=== PATIENT | female | born 1950 | race Asian ===

== ENCOUNTER 2017-06-01 18:57 | Emergency (ER) | payer MEDICARE, BC ==
[~2017-06-01 18:57] MED LIST: CANA100T PO; CARB1TAB18 PO; LOSA25TA2 PO; PARO20TA58 PO; PRAM0.5T PO; SOLI5TAB5 PO
[2017-06-01] MEDS ORDERED: KETOROLAC 15 MG INJ IM STA (19:20)
--- NOTE | 2017-06-01 19:55 | RADRPT ---
PROCEDURE: XR Right Shoulder CLINICAL INDICATION: Trauma TECHNIQUE: An AP and a Y-view were submitted. COMPARISON: None FINDINGS: Osseous structures: The osseous elements are quite rarefied but appear intact with no fracture ident ified. Joint spaces: The glenohumeral joint appears unremarkable. Moderate degenerative changes seen about the right AC joint. Soft tissues: The soft tissues are generous. IMPRESSION: 1. No fracture is identified. 2. Moderate degenerative change seen about the right AC joint. Physician Mark Date Time Electronically viewed and signed by Barabra Camarena Physician on 06/01/2017 19:55 /
--- NOTE | 2017-06-01 19:57 | RADRPT ---
PROCEDURE: XR Left Tibia-Fibula CLINICAL INDICATION: Trauma TECHNIQUE: AP and lateral radiographs were submitted COMPARISON: No previous comparison is available. FINDINGS: Osseous structures: The osseous elements appear rarefied but intact. No fractures identified. Joint spaces: are well maintained, with no significant spurring, erosion or joint effusion evident. Soft tissues: Punctate calcifications are seen within the soft tissues anterior to the distal third of the tibia. IMPRESSION: 1. Osteoporosis with no fracture or dislocation identified. 2. A few punctate calcifications are seen within the soft tissues ventral to the distal third of th e left tibia. Physician Mark Date Time Electronically viewed and signed by Physician Mark on 06/01/2017 19:56 /
[2017-06-01] MEDS ORDERED: HYDROCODONE/APAP (5/325) TAB PO ONE (20:00)
[2017-06-01] MEDS ORDERED: RASA1TAB PO (20:29)
[2017-06-01] MEDS ORDERED: CARB1CAP7 PO (20:29)
[2017-06-01] MEDS ORDERED: ENTA200T16 PO (20:29)
[2017-06-01] MEDS ORDERED: GLIM1TAB2 PO (20:29)
[2017-06-01] MEDS ORDERED: OMEP20CA16 PO (20:29)
[2017-06-01] MEDS ORDERED: BISA5TAB6 PO (20:29)
--- NOTE | 2017-06-01 20:57 | ERD ---
ER Documentation Chief Complaint Date/Time DATE: 06/01/17 TIME: 20:55 Chief Complaint HPI 66-year-old female with a history of diabetes, hypertension and Parkinson's disease presents to the ED after a slip and fall out of her chair. Family was visiting in 1 hour to get food and came back and found her on the floor. Patient states she slipped out of the chair and complains of mild pain to her left lower leg and right shoulder. She denies head injury or loss of consciousness. Otherwise asymptomatic. No chest pain, palpitations or shortness of breath. No abdominal pain, nausea or vomiting. No URI symptoms or cough. No fevers or chills. ROS All systems reviewed and are negative except as per history of present illness. Medications Home Meds Reported Medications Bisacodyl* (Bisacodyl*) 5 Mg Tablet.dr, 5 MG PO DAILY, TAB 06/01/17 Carbidopa/Levodopa (Rytary ER 61.25 mg-245 mg Cap) 1 Each Capsule.er, 1 EACH PO , CAP 06/01/17 Rasagiline Mesylate* (Azilect*) 1 Mg Tablet, 1 MG PO DAILY, TAB 06/01/17 Entacapone* (Comtan*) 200 Mg Tab, 200 MG PO 5 TIMES DAILY, TAB TAKE I TABLET 5 TIMES DAILY: 7AM;10AM;1PM;4PM;7PM 06/01/17 Glimepiride* (Glimepiride*) 1 Mg Tablet, 1 MG PO WITH BREAKFAST, TAB 06/01/17 Omeprazole* (Omeprazole*) 20 Mg Capsule.dr, 20 MG PO BID, #60 CAP 06/01/17 Paroxetine Hcl* (Paxil*) 20 Mg Tablet, 20 MG PO HS, TAB 06/15/15 Pramipexole* (Pramipexole*) 0.5 Mg Tablet, 0.5 MG PO TID, TAB 06/15/15 Carbidopa-Levodopa* (Sinemet*) 10-100 Mg Tablet, 1 TAB PO 5 TIMES DAILY, TAB TAKE 1 TABLET 5 TIMES DAILY: 7AM;10AM;1PM;4PM;7PM 06/15/15 Discontinued Reported Medications Losartan Potassium* (Cozaar*) 25 Mg Tablet, 25 MG PO DAILY, TAB 06/15/15 Solifenacin* (Vesicare*) 5 Mg Tablet, 5 MG PO DAILY, TAB 06/15/15 Canagliflozin (Invokana) 100 Mg Tablet, 100 MG PO DAILY, TAB 06/15/15 Allergies Allergies: Coded Allergies: No Known Allergy (Unverified , 06/01/17) PMhx/Soc Reviewed in chart. As per HPI History of Surgery: No Anesthesia Reaction: No Hx Neurological Disorder: Yes (Hx Parkinsons) Hx Respiratory Disorders: No Hx Cardiac Disorders: Yes (HTN) Hx Psychiatric Problems: No Hx Miscellaneous Medical Probl: Yes (HTN, DM, Parkinson's Disease) Hx Alcohol Use: No Hx Substance Use: No Hx Tobacco Use: No Smoking Status: Never smoker FmHx Reviewed in chart. Not relevant to presenting complaint. Physical Exam Vitals Vital Signs Date Time Temp Pulse Resp B/P Pulse Ox O2 Delivery O2 Flow Rate FiO2 06/01/17 22:15 81 26 108/69 93 Room Air 06/01/17 20:51 79 31 123/65 95 Room Air 06/01/17 19:23 84 26 126/73 95 Room Air Physical Exam Const: Alert, no acute distress. Head: Atraumatic Eyes: Normal Conjunctiva. Pupils equal reactive to light ENT: Normal External Ears, Nose and Mouth. Neck: Full range of motion. Nontender. Resp: Breath sounds equal and clear to auscultation bilaterally Cardio: Regular rate and rhythm, no murmurs Abd: Soft, nontender non tender, non distended. Normal bowel sounds Skin: No petechiae or rashes Back: No midline or flank tenderness Ext: Left lower extremity: Pretibial tenderness just below the knee with superficial bruising. No swelling, ecchymosis or deformity. No knee, hip or ankle swelling or tenderness. Full range of motion. Distal neurovascular intact. Right shoulder: Mild tenderness but no deformity. Range of motion is diminished due to pain. No elbow or wrist swelling or tenderness. Distal neurovascular intact. Neur: Awake and alert. Severe tremors and dysarthria. Psych: Normal Mood and Affect Results 24 hrs Current Medications Medications (Trade) Dose Ordered Sig/Shawn Route PRN Reason Start Time Stop Time Status Last Admin Dose Admin Ketorolac Tromethamine (Toradol) 15 mg ONCE STAT IM 06/01/17 19:20 06/01/17 19:21 DC Acetaminophen/ Hydrocodone Bitart (Center (5325)) 1 tab ONCE ONCE PO 06/01/17 20:00 06/01/17 20:01 DC 06/01/17 19:49 Procedures/MDM DOCUMENTS REVIEWED: ED nurse, prior ED, prior records MEDICAL DECISION MAKIN-year-old female with a history of diabetes, hypertension and Parkinson's disease presents to the ED after a slip and fall out of her chair. Patient refused any workup other than radiographs which were negative. No head injury, headache, loss of consciousness or other indication for neuroimaging. There was no syncope. Stable for discharge with precautionary instructions and outpatient follow-up as counseled Counseled patient of regarding diagnostic workup, diagnosis and need for followup. Understands to return to ED if symptoms recur, worsen or any other concerns. Departure Diagnosis: Primary Impression: Fall Encounter type: initial encounter Qualified Code: W19.XXXA - Fall, initial encounter Additional Impressions: Contusion of left lower extremity Encounter type: initial encounter Qualified Code: S80.12XA - Contusion of left lower extremity, initial encounter Parkinsons disease Contusion of right shoulder Encounter type: initial encounter Qualified Code: S40.011A - Contusion of right shoulder, initial encounter Condition: Stable (Improved) ALVARO SAVAGE MD Jun 01, 2017 20:57
[2017-06-01 22:15] VITALS: BP 108/69; PULSE 81; RESP 26
== END 2017-06-01 22:19 | disposition home or self-care (01) ==
LOC: E/R 18:57
DX: S80.12XA Contusion of left lower leg, initial encounter (principal); S40.011A Contusion of right shoulder, initial encounter; G20 Parkinson's disease; E11.9 Type 2 diabetes mellitus without complications; I10 Essential (primary) hypertension; W07.XXXA Fall from chair, initial encounter; Y92.9 Unspecified place or not applicable; Z79.84 Long term (current) use of oral hypoglycemic drugs
CPT/HCPCS: 73030; 73590; 99284; J1885

== ENCOUNTER 2017-07-08 03:19 | Inpatient (IN) | payer MEDICARE, BC ==
[2017-07-08] VITALS (7 sets, daily range): BP systolic 129–148; BP diastolic 62–80; PULSE 86–91; RESP 18–32; TEMP 98.9; Ht 165.1 cm; Wt 86.4 kg
[~2017-07-08] VITALS: Ht 165.1 cm; Wt 86.4 kg
[~2017-07-08 03:19] MED LIST changes: +BISA5TAB6 PO; -CANA100T PO; +CARB1CAP7 PO; +ENTA200T16 PO; +GLIM1TAB2 PO; -LOSA25TA2 PO; +OMEP20CA16 PO; +RASA1TAB PO; -SOLI5TAB5 PO
[2017-07-08] MEDS ORDERED: VANCOMYCIN 1 GM (PMX) 250 ML IVPB ONE (03:30)
[2017-07-08] MEDS ORDERED: CEFEPIME 2GM/50 ML (PMX) 50 ML IVPB STA (03:30)
[2017-07-08] MEDS ORDERED: SOD CHLORIDE 0.9% 1,000 ML IV ONE ×2 (03:30)
[2017-07-08] MEDS ORDERED: SOD CHLORIDE 0.9% 500 ML IV ONE ×2 (03:30→04:00)
--- NOTE | 2017-07-08 03:58 | ERA ---
ER Documentation Chief Complaint Date/Time DATE: 07/08/17 TIME: 03:53 Chief Complaint BIB RA from home with c/o ALOC, high fever. HPI This 67-year-old female is brought in from home for high fever and altered mental status. She was at home with her who called paramedics for fever is going up on for 2 days. Patient's been out of several hospitals and is bedridden in a hospital bed at home. denies patient has had cough recently. She is unable to provide a history for herself. ROS Unobtainable from patient Medications Home Meds Reported Medications Bisacodyl* (Bisacodyl*) 5 Mg Tablet.dr, 5 MG PO DAILY, TAB 06/01/17 Carbidopa/Levodopa (Rytary ER 61.25 mg-245 mg Cap) 1 Each Capsule.er, 1 EACH PO , CAP 06/01/17 Rasagiline Mesylate* (Azilect*) 1 Mg Tablet, 1 MG PO DAILY, TAB 06/01/17 Entacapone* (Comtan*) 200 Mg Tab, 200 MG PO 5 TIMES DAILY, TAB TAKE I TABLET 5 TIMES DAILY: 7AM;10AM;1PM;4PM;7PM 06/01/17 Glimepiride* (Glimepiride*) 1 Mg Tablet, 1 MG PO WITH BREAKFAST, TAB 06/01/17 Omeprazole* (Omeprazole*) 20 Mg Capsule.dr, 20 MG PO BID, #60 CAP 06/01/17 Paroxetine Hcl* (Paxil*) 20 Mg Tablet, 20 MG PO HS, TAB 06/15/15 Pramipexole* (Pramipexole*) 0.5 Mg Tablet, 0.5 MG PO TID, TAB 06/15/15 Carbidopa-Levodopa* (Sinemet*) 10-100 Mg Tablet, 1 TAB PO 5 TIMES DAILY, TAB TAKE 1 TABLET 5 TIMES DAILY: 7AM;10AM;1PM;4PM;7PM 06/15/15 Allergies Allergies: Coded Allergies: No Known Allergy (Unverified , 07/08/17) PMhx/Soc History of Surgery: No Anesthesia Reaction: No Hx Neurological Disorder: Yes (Parkinsons Disease, ) Hx Respiratory Disorders: No Hx Cardiac Disorders: Yes (HTN) Hx Psychiatric Problems: No Hx Miscellaneous Medical Probl: Yes (DM) Hx Alcohol Use: No Hx Substance Use: No Hx Tobacco Use: No Physical Exam Vitals Vital Signs Date Time Temp Pulse Resp B/P Pulse Ox O2 Delivery O2 Flow Rate FiO2 07/08/17 03:52 102.9 96 18 136/75 96 Room Air 07/08/17 03:31 102.9 106 22 136/75 100 Physical Exam Const: [] Moderate distress Head: Atraumatic Eyes: Normal Conjunctiva ENT: Normal External Ears, Nose and Mouth. Neck: Supple, no JVD Resp: Tachypnea with mild decreased bibasilar breath sounds Cardio: Regular tachycardia, no murmurs Abd: Soft, no apparent tenderness, non distended. Normal bowel sounds Skin: No petechiae or rashes, very warm to the touch Back: No midline or flank tenderness Ext: No cyanosis, mild pedal edema Neur: Awake and alert, opens eyes to voice, has some purposeful movements, does not follow commands well. Moves all 4 extremities apparently Psych: Normal Mood and Affect Result Diagram: 07/08/17 0330 07/08/17 0330 Results 24 hrs Laboratory Tests Test 07/08/17 03:30 White Blood Count 9.510^3/ul Red Blood Count 4.2010^6/ul Hemoglobin 13.3g/dl Hematocrit 39.7% Mean Corpuscular Volume 94.5fl Mean Corpuscular Hemoglobin 31.7pg Mean Corpuscular Hemoglobin Concent 33.5g/dl Red Cell Distribution Width 12.9% Platelet Count 96688^3/UL Mean Platelet Volume 9.3fl Neutrophils % 85.2% Lymphocytes % 10.5% Monocytes % 3.5% Eosinophils % 0.0% Basophils % 0.2% Nucleated Red Blood Cells % 0.0/100WBC Neutrophils # 8.110^3/ul Lymphocytes # 1.010^3/ul Monocytes # 0.310^3/ul Eosinophils # 0.010^3/ul Basophils # 0.010^3/ul Nucleated Red Blood Cells # 0.010^3/ul Prothrombin Time 15.2Sec Prothrombin Time Ratio 1.2 INR International Normalized Ratio 1.19 Activated Partial Thromboplast Time 29.0Sec Urine Color YELLOW Urine Clarity SLIGHTLY CLOUDY Urine pH 6.0 Urine Specific [place] 1.037 Urine Ketones 2+mg/dL Urine Nitrite NEGATIVEmg/dL Urine Bilirubin NEGATIVEmg/dL Urine Urobilinogen NEGATIVEmg/dL Urine Leukocyte Esterase 1+Henrique/ul Urine Microscopic RBC 27/HPF Urine Microscopic WBC 38/HPF Urine Hemoglobin 2+mg/dL Urine Glucose 3+mg/dL Urine Total Protein 2+mg/dl Sodium Level 141mmol/L Potassium Level 3.7mmol/L Chloride Level 101mmol/L Carbon Dioxide Level 23mmol/L Anion Gap 21 Blood Urea Nitrogen 13mg/dl Creatinine 0.67mg/dl Glucose Level 151mg/dl Lactic Acid Level 1.1mmol/L Calcium Level 8.7mg/dl Total Bilirubin 0.8mg/dl Direct Bilirubin 0.00mg/dl Indirect Bilirubin 0.8mg/dl Aspartate Amino Transf (AST/SGOT) 27IU/L Alanine Aminotransferase (ALT/SGPT) 17IU/L Alkaline Phosphatase 48IU/L Troponin I 0.014ng/ml Total Protein 7.0g/dl Albumin 4.3g/dl Globulin 2.70g/dl Albumin/Globulin Ratio 1.59 Current Medications Medications (Trade) Dose Ordered Sig/Shawn Route PRN Reason Start Time Stop Time Status Last Admin Dose Admin Cefepime HCl 50 ml @ 100 mls/hr ONCE STAT IVPB 07/08/17 03:30 07/08/17 03:59 DC 07/08/17 04:17 Vancomycin HCl 250 ml @ 125 mls/hr ONCE ONCE IVPB 07/08/17 03:30 07/08/17 05:29 07/08/17 04:46 Sodium Chloride 1,000 ml @ 1,000 mls/hr Q1H ONCE IV 07/08/17 03:30 07/08/17 04:29 DC 07/08/17 04:17 Sodium Chloride 1,000 ml @ 1,000 mls/hr Q1H ONCE IV 07/08/17 03:30 07/08/17 04:29 DC 07/08/17 04:17 Sodium Chloride 500 ml @ 500 mls/hr Q1H ONCE IV 07/08/17 03:30 07/08/17 04:29 DC 07/08/17 04:16 Sodium Chloride (NS) 500 ml @ 500 mls/hr Q1H ONCE IV 07/08/17 04:00 07/08/17 04:59 DC 07/08/17 04:24 Acetaminophen (Tylenol Supp) 650 mg ONCE ONCE WA 07/08/17 05:30 07/08/17 05:31 Procedures/MDM UTI with sepsis and debilitated patient. Septic workup was immediately performed. Patient was hydrated 2-1/2 L of normal saline, given cefepime and vancomycin. Initially unstable vital signs stabilized with treatment. did not want CTs performed the patient and she has had several and had a CT abdomen pelvis 2 months ago the x-ray did not want that done. Patient initially appear to be in respiratory distress stabilized with just fluids and antibiotics. Spoke with Dr. Felix will be admitting the patient to telemetry for further monitoring. mold engraver interpretation: Sinus tachycardia followed by normal sinus rhythm without arrhythmia EKG interpretation: Sinus tachycardia rate of 106, normal intervals, no ST or T- wave changes concerning for acute ischemia, left axis deviation Chest x-ray interpretation: I see no acute process, no pneumonia, no pulmonary edema, no widened mediastinum, no pneumothorax, no fractures Critical care time 35 minutes: This includes treatment of sepsis and debilitated patient with unstable vital signs, careful fluid administration, early antibiotic administration, consideration of invasive procedures, chart review, discussion with patient's and admitting doctor. This does not include any billable procedure Departure Diagnosis: Primary Impression: Sepsis secondary to UTI Additional Impression: Metabolic encephalopathy Condition: Serious CRISTÓBAL LLANES DO Jul 08, 2017 03:58
[2017-07-08 04:12] LABS: UR BILIRUBIN (Dip) NEGATIVE (NEGATIVE); UR BLOOD (Dip) 2+ mg/dL (NEGATIVE); UR CLARITY SLIGHTLY CLOUDY (CLEAR); UR COLOR YELLOW (YELLOW); UR GLUCOSE (Dip) 3+ mg/dL (NEGATIVE); UR KETONES (Dip) 2+ mg/dL (NEGATIVE); UR LEUKOCYTE ESTERASE (Dip) 1+ Leu/ul (NEGATIVE); UR NITRITE (Dip) NEGATIVE (NEGATIVE); UR SPECIFIC GRAVITY (Dip) 1.037 (1.003-1.030); UR TOTAL PROTEIN (Dip) 2+ mg/dl (NEGATIVE); UR UROBILINOGEN (Dip) NEGATIVE (NEGATIVE)
[2017-07-08 04:13] LABS: ADD UMIC YES; UR ASCORBIC ACID 40 mg/dL (NEGATIVE); UR RBC 27 /HPF (0-5)
[2017-07-08 04:14] LABS: BASOPHILS % 0.2 % (0.0-2.0); HEMATOCRIT 39.7 % (37.0-47.0); HEMOGLOBIN 13.3 g/dl (12.0-16.0); LYMPHOCYTES % 10.5 % (15.0-51.0); MEAN CORPUSCULAR HEMOGLOBIN 31.7 pg (29.0-33.0); MEAN CORPUSCULAR HGB CONC 33.5 g/dl (32.0-37.0); MEAN CORPUSCULAR VOLUME 94.5 fl (82.0-101.0); MEAN PLATELET VOLUME 9.3 fl (7.4-10.4); MONOCYTE # 0.3 10^3/ul (0.3-0.9); MONOCYTES % 3.5 % (0.0-11.0); NEUTROPHIL # 8.1 10^3/ul (1.6-7.5); NEUTROPHILS % 85.2 % (39.0-77.0); PLATELET COUNT 184 10^3/UL (140-415); RED CELL DISTRIBUTION WIDTH 12.9 % (11.5-14.5); WHITE BLOOD COUNT 9.5 10^3/ul (4.8-10.8)
[2017-07-08 04:15] LABS: INR 1.19; PROTIME 15.2 Sec (12.2-14.2); PT RATIO 1.2
[2017-07-08 04:28] LABS: ALBUMIN 4.3 g/dl (3.3-4.9); ALBUMIN/GLOBULIN RATIO 1.59; BILIRUBIN,INDIRECT 0.8 mg/dl (0-1.1); BILIRUBIN,TOTAL 0.8 mg/dl (0.2-1.3); CALCIUM 8.7 mg/dl (8.4-10.2); CREATININE 0.67 mg/dl (0.44-1.00); POTASSIUM 3.7 mmol/L (3.5-5.1)
--- NOTE | 2017-07-08 04:38 | RADRPT ---
PROCEDURE: Chest. CLINICAL INDICATION: Chest pain. TECHNIQUE: Single frontal view of the chest was obtained. COMPARISON: 06/15/2015. FINDINGS: The cardiac silhouette is magnified. The aortic arch is calcified. There is no focal consolidation , vascular congestion or pleural effusion. There is no pneumothorax. IMPRESSION: No evidence for active cardiopulmonary disease. Aortic atherosclerosis. .Gian Ruiz MD, MD Date Time Electronically viewed and signed by .Gian Ruiz MD, MD on 07/08/2017 04:38 .T/
[2017-07-08 04:39] LABS: TROPONIN-I 0.014 ng/ml (0.00-0.12)
[2017-07-08] MEDS ORDERED: ACETAMINOPHEN 650 MG SUPP PR ONE (05:30)
[2017-07-08] MEDS ORDERED: ONDANSETRON 4 MG INJ IV PRN ×2 (05:30→06:00)
[2017-07-08] MEDS ORDERED: ACETAMINOPHEN 325 MG TAB PO PRN (05:30)
[2017-07-08] MEDS ORDERED: LEVOFLOXACIN 750MG/D5W (PMX) 150 ML IVPB SCH (06:00)
[2017-07-08] MEDS ORDERED: NACL 0.9% 3 ML SYG IV SCH (06:00)
[2017-07-08] MEDS ORDERED: morphine 2 MG INJ IV PRN (06:00)
[2017-07-08] MEDS: SOD CHLORIDE 0.9% 1,000 ML IV SCH ×2 (07:03→18:26)
--- NOTE | 2017-07-08 07:21 | HP ---
Date/Time of Note Date/Time of Note DATE: 07/08/17 TIME: 06:59 Assessment/Plan VTE Prophylaxis VTE Prophylaxis Intervention: SCD's Assessment/Plan Chief Complaint/Hosp Course This is a 67-year-old female being admitted to the telemetry floor for: #1 urosepsis: Patient presented with fever tachypnea and tachycardia. UA was positive for urinary tract infection. Patient initially received IV antibiotics in the ED. At the current time will put the patient on Levaquin 750 mg q. daily. Will await urine cultures. Tylenol for fevers. Her CBC and CMP are within normal values. And her lactate is 0.8. #2 Parkinson's: Patient at the current time is having issues with her speech as well as rigidity/dystonic features. This likely could be secondary to worsening of her Parkinson's versus adverse effects from her medications as she was on high-dose of parkinsons medications. At the current time we will continue her carbidopa levodopa and pramipexole and Azilect. The did state that her entacapone home dose was reduced however based on the medical reconciliation it stated 200 mg 5 times a day. At the current time we will not restart this medication will consult with neurology for further medication guidance. We will also consult neurology overall patient's clinical condition. #3 tachypnea: Patient has periods of tachypnea. She denies any shortness of breath or chest pain. Her x-ray does not show any signs of any infection. This could be possibly a symptom over Parkinson's., However we will continue to monitor this. Her lactate level was 0.8. #4 diabetes mellitus: Patient is only on glimepiride as an outpatient. Will check hemoglobin A1c. Will put patient on insulin sliding scale. Further treatment strategy will be implemented for the clinical course Problems: HPI/ROS Admit Date/Time Admit Date/Time Hx of Present Illness Chief complaint: Altered mental status and high fever This 67-year-old female is brought in from home for high fever and altered mental status. She was at home with her who called paramedics for fever is going up on for 2 days. Patient's been out of several hospitals and is bedridden in a hospital bed at home. denies patient has had cough recently. She is unable to provide a history for herself. Upon my examination the patient was awake in bed. She had periods of tachypnea. Denies any chest pain or shortness of breath. As per the she has been dealing with Parkinson's for the last few years. 2 weeks ago she did have her Parkinson's medications adjusted since that time the has noticed that her her fingers have become somewhat contracted. She also was having issues with drooling and she will she saw a neurologist and had an injection to her face. This since that time she has been unable to properly enunciate her words. She was seen by a new neurologist 1-2 days ago who thought some of her symptoms may be related to too high of a dose of her Parkinson's medications. Her medication doses were decreased. Also states that she has not been able to have proper bowel movements over the last 1-2 weeks. Allergies: NKDA Medications: See ELENA CARRERA Subjective hx not possible: other (Patient not properly able to verbalize secondary likely to underlying Parkinson's medication effect.) PMH/Family/Social Past Medical History Parkinson's, diabetes Past Surgical History Back surgery Family History Significant Family History: no pertinent family hx Social History Alcohol Use: none Smoking Status: Never smoker Drug Use: none Exam/Review of Systems Vital Signs Vitals Vital Signs Date Time Temp Pulse Resp B/P Pulse Ox O2 Delivery O2 Flow Rate FiO2 07/08/17 06:00 100.6 81 18 124/64 98 Room Air Exam Exam General: This is a 67-year-old female lying in bed, going in and out of increased work of breathing, denies any chest pain or shortness of breath HEENT: Atraumatic, normocephalic. The pupils are equal, round and reactive. Extraocular motor are intact Neck: Supple with full range of motion. No rigidity or meningismus Chest: Nontender Lungs: Patient goes from normal breathing but does display periods of tachypnea. Lungs are clear to auscultation. Heart: Normal S1-S2, Regular rhythm and rate. No overt murmurs appreciated Abdomen: Soft , nontender, nondistended , bowel sounds are present. No guarding no rebound tenderness , Extremities: Strength 4 out of 5 in the upper extremities bilaterally, contractures noted in the hands and fingers. Strength 3-4 out of 5 in the bilateral lower extremities, free range of motion of 4 extremities. Neurologic: Patient is not properly able to enunciate her speech, it is not clear. Cranial nerves II through XII intact. Additional Comments PROCEDURE: Chest. CLINICAL INDICATION: Chest pain. TECHNIQUE: Single frontal view of the chest was obtained. COMPARISON: 06/15/2015. FINDINGS: The cardiac silhouette is magnified. The aortic arch is calcified. There is no focal consolidation, vascular congestion or pleural effusion. There is no pneumothorax. IMPRESSION: No evidence for active cardiopulmonary disease. Aortic atherosclerosis. .Gian Ruiz MD, MD Date Time Electronically viewed and signed by .Gian Ruiz MD, MD on 07/08/2017 04:38 .T/ CC: CRISTÓBAL LLANES DO Labs Result Diagram: 07/08/17 0330 07/08/17 0330 Medications Medications Current Medications Sodium Chloride (NS) 1,000 ml @ 80 mls/hr [id number] IV ; Start 07/08/17 at 05:56 Ondansetron HCl (Zofran Inj) 4 mg Q6H PRN IV NAUSEA AND/OR VOMITING; Start 09/14 at 06:00 Acetaminophen (Tylenol Tab) 650 mg Q6H PRN PO PAIN LEVEL 1-3 OR FEVER; Start at 06:00 Morphine Sulfate (morphine) 2 mg Q4H PRN IV PAIN LEVEL 7-10; Start 07/08/17 at 06:00 Famotidine 20 mg 20 mg Q12 PO ; Start 07/08/17 at 09:00 Levofloxacin/ Dextrose (Levaquin 750 Mg/ D5W 150 ml (Pmx)) 150 ml @ 100 mls/hr Q24H IVPB ; Start 07/08/17 at 06:00 OSMAN INIGUEZ Jul 08, 2017 07:09
--- NOTE | 2017-07-08 08:58 | RADRPT ---
PROCEDURE: XR Abdomen 1 View. CLINICAL INDICATION: Abdominal pain, constipation. TECHNIQUE: AP abdomen x-ray. COMPARISON: None. FINDINGS: Air and stool are seen scattered throughout the colon multiple nondilated, gas filled loops of smal l bowel are seen in the abdomen. No dilated loops of small bowel are observed. No organomegaly is identified. Likely Luna catheter is seen over the lower pelvis. Degenerative changes are noted in the hips and spine. IMPRESSION: Nonspecific bowel gas pattern. If further characterization of the abdomen is needed CT should be considered. RPTAT: AA .Victor Hugo Baez MD, Date Time Electronically viewed and signed by .Victor Hugo Beaz MD, on 07/08/2017 08:58 .P/
[2017-07-08] MEDS: RASAGILINE MESYLATE 1 MG TAB PO SCH (09:00)
[2017-07-08] MEDS: FAMOTIDINE 20 MG TAB PO SCH ×2 (09:00→22:05)
[2017-07-08] MEDS: PRAMIPEXOLE 0.25 MG TAB PO SCH ×3 (09:00→22:05)
[2017-07-08] MEDS: CARBIDOPA/LEVODOPA (10/100) TAB PO SCH ×5 (09:00→21:00)
--- NOTE | 2017-07-08 10:52 | RADRPT ---
PROCEDURE: CT Abdomen and Pelvis without contrast. CLINICAL INDICATION: Sepsis, fever, UTI TECHNIQUE: CT of the abdomen and pelvis was performed on a multi-detector scanner without IV contr ast. Coronal and sagittal images were reformatted from the axial data set. One or more of the foll owing dose reduction techniques were used: automated exposure control, adjustment of the mA and/or k V according to patient size, use of iterative reconstruction technique. CTDI = 22.3 mGy. DLP = 1442 .3 mGy-cm. COMPARISON: None. FINDINGS: CT abdomen: The lung bases are clear. The heart size is normal, without pericardial effusion. Coronary arteria l calcifications are noted. The liver is fatty infiltrated, without evidence of focal mass. Gallbl adder, biliary tree, pancreas, spleen, adrenal glands and kidneys are unremarkable. No urolithiasis or obstructive uropathy is identified. The stomach is grossly unremarkable. The aorta is of normal caliber. Aortic vascular calcifications are present. There is no retroperit nunez lymphadenopathy. The neetu hepatis region is clear. CT pelvis: No bowel obstruction, free intraperitoneal air or abscess is identified. Mild retained fecal materi al may indicate constipation. There is no diverticulosis, diverticulitis, colitis or appendicitis. Fat-containing periumbilical ventral hernia is noted. Luna catheter balloon is within the urinary bladder. Uterus and adnexa are grossly unremarkable. No pelvic mass, free fluid or lymphadenopath y is identified. The surrounding osseous structures are remarkable for degenerative enthesopathy of the spine. No os teolytic or osteoblastic lesion is detected. IMPRESSION: 1. Coronary arterial and aortoiliac atherosclerotic calcifications. 2. Hepatic steatosis. 3. Mild retained fecal material, possibly indicating constipation. 4. Small fat-containing periumbilical ventral hernia, without incarceration. 5. Luna catheter balloon is within the urinary bladder. 6. No mass, lymphadenopathy, or focal acute inflammatory process is identified. RPTAT: EE .Isac Henson MD, Date Time Electronically viewed and signed by .Isac Henson MD, MD on 07/08/2017 10:51 .R/
[2017-07-08] MEDS ORDERED: POLYETHYLENE GLYCOL 17 GM PACKET PO PRN (17:00)
--- NOTE | 2017-07-08 18:12 | PN ---
Date/Time of Note Date/Time of Note DATE: 07/08/17 TIME: 17:54 Assessment/Plan VTE Prophylaxis VTE Prophylaxis Intervention: SCD's Lines/Catheters IV Catheter Type (from Nrsg): Saline Lock Urinary Cath still in place: Yes Reason Cath still needed: other (indicate) (dc) Assessment/Plan Assessment/Plan 67 yo F with Parkinsons presents with constipation, abd pain, fever. Likely 2/2 UTI +/- ADR to her new PD regimen. PLAN -cont empiric abx -start miralax -phone cs with neurologist, he advised outpatient f/u DVT prophx cont SSRI Subjective 24 Hr Interval Summary Free Text/Dictation Pt failed ED BSE, but passed ST eval. States last BM was several days ago. Exam/Review of Systems Vital Signs Vitals Vital Signs Date Time Temp Pulse Resp B/P Pulse Ox O2 Delivery O2 Flow Rate FiO2 07/08/17 16:00 88 07/08/17 14:27 98.4 18 129/62 98 Room Air Exam sitting up in bed, nad no mrg lungs clear abd mildly distended no le edema no rashes abd XR with constipation Results Result Diagram: 07/08/17 0330 07/08/17 0330 Results 24 hrs Laboratory Tests Test 07/08/17 03:30 07/08/17 05:28 07/08/17 08:07 07/08/17 08:27 White Blood Count 9.5 Red Blood Count 4.20 Hemoglobin 13.3 Hematocrit 39.7 Mean Corpuscular Volume 94.5 Mean Corpuscular Hemoglobin 31.7 Mean Corpuscular Hemoglobin Concent 33.5 Red Cell Distribution Width 12.9 Platelet Count 184 Mean Platelet Volume 9.3 # Neutrophils % 85.2 H Lymphocytes % 10.5 L Monocytes % 3.5 Eosinophils % 0.0 Basophils % 0.2 Nucleated Red Blood Cells % 0.0 Neutrophils # 8.1 H Lymphocytes # 1.0 Monocytes # 0.3 Eosinophils # 0.0 Basophils # 0.0 Nucleated Red Blood Cells # 0.0 Prothrombin Time 15.2 H Prothrombin Time Ratio 1.2 INR International Normalized Ratio 1.19 Activated Partial Thromboplast Time 29.0 Urine Color YELLOW Urine Clarity SLIGHTLY CLOUDY A Urine pH 6.0 Urine Specific [place] 1.037 H Urine Ketones 2+ H Urine Nitrite NEGATIVE Urine Bilirubin NEGATIVE Urine Urobilinogen NEGATIVE Urine Leukocyte Esterase 1+ H Urine Microscopic RBC 27 H Urine Microscopic WBC 38 H Urine Hemoglobin 2+ H Urine Glucose 3+ H Urine Total Protein 2+ H Sodium Level 141 Potassium Level 3.7 Chloride Level 101 Carbon Dioxide Level 23 Anion Gap 21 H Blood Urea Nitrogen 13 Creatinine 0.67 Glucose Level 151 Lactic Acid Level 1.1 0.8 0.8 Calcium Level 8.7 Total Bilirubin 0.8 Direct Bilirubin 0.00 Indirect Bilirubin 0.8 Aspartate Amino Transf (AST/SGOT) 27 Alanine Aminotransferase (ALT/SGPT) 17 Alkaline Phosphatase 48 Troponin I 0.014 Total Protein 7.0 Albumin 4.3 Globulin 2.70 Albumin/Globulin Ratio 1.59 Bedside Glucose 133 Medications Medications Current Medications Sodium Chloride (NS) 1,000 ml @ 80 mls/hr [id number] IV Last administered on 07/08 07:03; Admin Dose 80 MLS/HR; Start 07/08/17 at 05:56 Ondansetron HCl (Zofran Inj) 4 mg Q6H PRN IV NAUSEA AND/OR VOMITING; Start 09/14 at 06:00 Acetaminophen (Tylenol Tab) 650 mg Q6H PRN PO PAIN LEVEL 1-3 OR FEVER; Start at 06:00 Morphine Sulfate (morphine) 2 mg Q4H PRN IV PAIN LEVEL 7-10; Start 07/08/17 at 06:00 Famotidine 20 mg 20 mg Q12 PO ; Start 07/08/17 at 09:00 Levofloxacin/ Dextrose (Levaquin 750 Mg/ D5W 150 ml (Pmx)) 150 ml @ 100 mls/hr Q24H IVPB Last administered on 07/08/17 07:12; Admin Dose 100 MLS/HR; Start at 06:00 Paroxetine HCl (Paxil) 20 mg HS PO ; Start 07/08/17 at 21:00 Pramipexole (Mirapex) 0.5 mg TID PO ; Start 07/08/17 at 09:00 Rasagiline (Azilect) 1 mg DAILY PO ; Start 07/08/17 at 09:00 Polyethylene Glycol (Miralax) 17 gm DAILY PRN PO CONSTIPATION; Start 07/08/17 at 17:00 SJ MCDOWELL MD Jul 08, 2017 18:04
[2017-07-08] MEDS: PAROXETINE 20 MG TAB PO SCH (22:05)
[2017-07-08] MEDS ORDERED: VANCOMYCIN IV PER PHARMACY XX SCH (23:30)
[2017-07-09] VITALS (13 sets, daily range): BP systolic 127–158; BP diastolic 68–82; PULSE 78–95; RESP 16–20
[2017-07-09] MEDS ORDERED: VANCOMYCIN 1.25 GM in SOD CHLORIDE 0.9% 250 ML IVPB SCH (01:00)
[2017-07-09] MEDS: ACETAMINOPHEN 325 MG TAB PO PRN ×2 (01:54→17:23)
[2017-07-09] MEDS ORDERED: GLUCOSE GEL 15 GRAM TUBE BUCCAL PRN (05:00)
[2017-07-09] MEDS ORDERED: DEXTROSE 50% 50 ML SYRINGE IV PRN ×2 (05:00)
[2017-07-09] MEDS ORDERED: GLUCAGON 1 MG INJ IM PRN (05:00)
[2017-07-09] MEDS ORDERED: GLUCOSE GEL 15 GRAM TUBE PO PRN ×2 (05:00)
[2017-07-09] MEDS: LEVOFLOXACIN 750 MG TABLET PO SCH (05:45)
[2017-07-09] MEDS: SOD CHLORIDE 0.9% 1,000 ML IV SCH ×2 (05:46→17:21)
[2017-07-09 07:43] LABS: BASOPHILS % 0.3 % (0.0-2.0); HEMATOCRIT 37.9 % (37.0-47.0); HEMOGLOBIN 13.2 g/dl (12.0-16.0); LYMPHOCYTES # 1.2 10^3/ul (0.8-2.9); LYMPHOCYTES % 12.7 % (15.0-51.0); MEAN CORPUSCULAR HGB CONC 34.8 g/dl (32.0-37.0); MEAN CORPUSCULAR VOLUME 94.8 fl (82.0-101.0); MEAN PLATELET VOLUME 9.2 fl (7.4-10.4); MONOCYTE # 0.5 10^3/ul (0.3-0.9); MONOCYTES % 4.8 % (0.0-11.0); NEUTROPHIL # 7.9 10^3/ul (1.6-7.5); NEUTROPHILS % 81.7 % (39.0-77.0); PLATELET COUNT 160 10^3/UL (140-415); RED CELL DISTRIBUTION WIDTH 12.6 % (11.5-14.5); WHITE BLOOD COUNT 9.7 10^3/ul (4.8-10.8)
[2017-07-09] MEDS ORDERED: INSULIN ASPART [NOVOLOG] 3 ML PEN SC SCH (08:00)
[2017-07-09] MEDS: RASAGILINE MESYLATE 1 MG TAB PO SCH (08:09)
[2017-07-09] MEDS: PRAMIPEXOLE 0.25 MG TAB PO SCH ×3 (08:10→21:30)
[2017-07-09] MEDS: FAMOTIDINE 20 MG TAB PO SCH ×2 (08:10→21:30)
[2017-07-09 08:13] LABS: ALBUMIN 3.5 g/dl (3.3-4.9); ALBUMIN/GLOBULIN RATIO 1.4; BILIRUBIN,INDIRECT 0.7 mg/dl (0-1.1); BILIRUBIN,TOTAL 0.7 mg/dl (0.2-1.3); CALCIUM 8.2 mg/dl (8.4-10.2); CHOL/HDL RATIO 5.2 RATIO; CREATININE 0.5 mg/dl (0.44-1.00); MAGNESIUM 2.2 mg/dl (1.7-2.5); POTASSIUM 3.4 mmol/L (3.5-5.1)
[2017-07-09] MEDS: CARBIDOPA/LEVODOPA (10/100) TAB PO SCH ×5 (08:15→21:30)
[2017-07-09 08:43] LABS: THYROID STIMULATING HORMONE 1.79 MIU/L (0.465-4.680)
[2017-07-09] MEDS ORDERED: NA PHOSPHATE/BIPHOS 133 ML ENEMA PR PRN (11:00)
[2017-07-09] MEDS: ACCU-CHEK XX SCH ×2 (11:37→17:27)
[2017-07-09] MEDS: VANCOMYCIN 1 GM in NS 250 ML IVPB SCH (13:18)
[2017-07-09] MEDS ORDERED: POTASSIUM CHLORIDE (SR) 20 MEQ TAB PO STA (16:19)
--- NOTE | 2017-07-09 16:19 | PN ---
Date/Time of Note Date/Time of Note DATE: 07/09/17 TIME: 16:18 Assessment/Plan VTE Prophylaxis VTE Prophylaxis Intervention: SCD's Lines/Catheters IV Catheter Type (from Nrsg): Peripheral IV Urinary Cath still in place: Yes Reason Cath still needed: other (indicate) (dc) Assessment/Plan Assessment/Plan 67 yo F with Parkinsons presents with constipation, abd pain, fever. Likely 2/2 UTI +/- ADR to her new PD regimen. PLAN -cont empiric abx -trial of enema -phone cs with neurologist, he advised outpatient f/u on 8.10 DVT prophx cont SSRI Subjective 24 Hr Interval Summary Free Text/Dictation Still hasn't had a BM despite miralax Exam/Review of Systems Vital Signs Vitals Vital Signs Date Time Temp Pulse Resp B/P Pulse Ox O2 Delivery O2 Flow Rate FiO2 07/09/17 15:45 99.0 86 18 158/82 98 07/08/17 14:27 Room Air Intake and Output 07/08/17 07/08/17 07/09/17 15:00 23:00 07:00 Intake Total 100 ml 1350 ml Output Total 900 ml 750 ml Balance -800 ml 600 ml Exam laying in bed, mumbling no mrg lungs clear abd mild distended no rashes urine culture with GNRs Results Result Diagram: 07/09/17 0708 07/09/17 0708 Results 24 hrs Laboratory Tests Test 07/09/17 04:37 07/09/17 07:08 07/09/17 07:27 07/09/17 11:35 Bedside Glucose 105 86 100 White Blood Count 9.7 Red Blood Count 4.00 L Hemoglobin 13.2 Hematocrit 37.9 Mean Corpuscular Volume 94.8 Mean Corpuscular Hemoglobin 33.0 Mean Corpuscular Hemoglobin Concent 34.8 Red Cell Distribution Width 12.6 Platelet Count 160 Mean Platelet Volume 9.2 Neutrophils % 81.7 H Lymphocytes % 12.7 L Monocytes % 4.8 Eosinophils % 0.0 Basophils % 0.3 Nucleated Red Blood Cells % 0.0 Neutrophils # 7.9 H Lymphocytes # 1.2 Monocytes # 0.5 Eosinophils # 0.0 Basophils # 0.0 Nucleated Red Blood Cells # 0.0 Sodium Level 140 Potassium Level 3.4 L Chloride Level 104 Carbon Dioxide Level 22 Anion Gap 17 H Blood Urea Nitrogen 15 Creatinine 0.50 Glucose Level 87 # Hemoglobin A1c 6.1 H Calcium Level 8.2 L Magnesium Level 2.2 Total Bilirubin 0.7 Direct Bilirubin 0.00 Indirect Bilirubin 0.7 Aspartate Amino Transf (AST/SGOT) 26 Alanine Aminotransferase (ALT/SGPT) 23 Alkaline Phosphatase 42 Total Protein 6.0 #L Albumin 3.5 Globulin 2.50 Albumin/Globulin Ratio 1.40 Triglycerides Level 85 Cholesterol Level 158 LDL Cholesterol, Calculated 111 HDL Cholesterol 30 L Cholesterol/HDL Ratio 5.2 Thyroid Stimulating Hormone (TSH) 1.790 Medications Medications Current Medications Sodium Chloride (NS) 1,000 ml @ 80 mls/hr [id number] IV Last administered on 07/09 05:46; Admin Dose 80 MLS/HR; Start 07/08/17 at 05:56 Ondansetron HCl (Zofran Inj) 4 mg Q6H PRN IV NAUSEA AND/OR VOMITING; Start 09/14 at 06:00 Acetaminophen (Tylenol Tab) 650 mg Q6H PRN PO PAIN LEVEL 1-3 OR FEVER Last administered on 07/09/17 01:54; Admin Dose 650 MG; Start 07/08/17 at 06:00 Morphine Sulfate (morphine) 2 mg Q4H PRN IV PAIN LEVEL 7-10; Start 07/08/17 at 06:00 Famotidine (Pepcid) 20 mg Q12 PO Last administered on 07/09/17 08:10; Admin Dose 20 MG; Start 07/08/17 at 09:00 Paroxetine HCl (Paxil) 20 mg HS PO Last administered on 07/08/17 22:05; Admin Dose 20 MG; Start 07/08/17 at 21:00 Pramipexole (Mirapex) 0.5 mg TID PO Last administered on 07/09/17 11:46; Admin Dose 0.5 MG; Start 07/08/17 at 09:00 Rasagiline (Azilect) 1 mg DAILY PO Last administered on 07/09/17 08:09; Admin Dose 1 MG; Start 07/08/17 at 09:00 Polyethylene Glycol (Miralax) 17 gm DAILY PRN PO CONSTIPATION Last administered on 07/08/17 19:03; Admin Dose 17 GM; Start 07/08/17 at 17:00 Levofloxacin (Levaquin) 750 mg DAILY@06 PO Last administered on 07/09/17 05:45 ; Admin Dose 750 MG; Start 07/09/17 at 06:00 Diagnostic Test (Pha) (Accu-Chek) 1 ea 02 XX ; Start 07/10/17 at 02:00 Miscellaneous Information 1 ea NOTE XX ; Start 07/09/17 at 05:00 Glucose (Glutose) 15 gm Q15M PRN PO DECREASED GLUCOSE; Start 07/09/17 at 05:00 Glucose (Glutose) 22.5 gm Q15M PRN PO DECREASED GLUCOSE; Start 07/09/17 at 05: 00 Dextrose (D50w Syringe) 25 ml Q15M PRN IV DECREASED GLUCOSE; Start 07/09/17 at 05:00 Dextrose (D50w Syringe) 50 ml Q15M PRN IV DECREASED GLUCOSE; Start 07/09/17 at 05:00 Glucagon (Glucagen) 1 mg Q15M PRN IM DECREASED GLUCOSE; Start 07/09/17 at 05:00 Glucose 15 gm 15 gm Q15M PRN BUCCAL DECREASED GLUCOSE; Start 07/09/17 at 05:00 Vancomycin HCl (Vancocin) 250 ml @ 125 mls/hr Q12H IVPB Last administered on 13:18; Admin Dose 125 MLS/HR; Start 07/09/17 at 13:00 Miscellaneous Information (*Rx Drug Level Order Reminder*) VANCOMYCIN TROUGH AT 1200 ONCE ONCE XX ; Start 07/10/17 at 12:00; Stop 07/10/17 at 12:01 Sodium Biphosphate/ Sodium Phosphate (Fleet Enema) 133 ml DAILY PRN [place] CONSTIPATION Last administered on 07/09/17 13:18; Admin Dose 133 ML; Start 10/15 at 11:00 SJ MCDOWELL MD Jul 09, 2017 16:19
[2017-07-09] MEDS: INSULIN ASPART [NOVOLOG] 3 ML PEN SC SCH (21:00)
[2017-07-09] MEDS: PAROXETINE 20 MG TAB PO SCH (21:30)
[2017-07-10] VITALS (12 sets, daily range): BP systolic 108–152; BP diastolic 59–77; PULSE 71–100; RESP 16–19
[2017-07-10] MEDS: ACCU-CHEK XX SCH ×2 (01:10→22:15)
[2017-07-10] MEDS: VANCOMYCIN 1 GM in NS 250 ML IVPB SCH ×2 (01:10→13:18)
[2017-07-10] MEDS ORDERED: ACCU-CHEK XX SCH ×2 (02:00)
[2017-07-10] MEDS: LEVOFLOXACIN 750 MG TABLET PO SCH (05:18)
[2017-07-10] MEDS: SOD CHLORIDE 0.9% 1,000 ML IV SCH ×3 (05:18→22:04)
[2017-07-10] MEDS: INSULIN ASPART [NOVOLOG] 3 ML PEN SC SCH ×4 (08:00→22:14)
[2017-07-10] MEDS: PRAMIPEXOLE 0.25 MG TAB PO SCH ×3 (08:47→21:57)
[2017-07-10] MEDS: FAMOTIDINE 20 MG TAB PO SCH ×2 (08:47→21:57)
[2017-07-10] MEDS: ACETAMINOPHEN 325 MG TAB PO PRN (08:47)
[2017-07-10] MEDS: RASAGILINE MESYLATE 1 MG TAB PO SCH (08:47)
[2017-07-10] MEDS: CARBIDOPA/LEVODOPA (10/100) TAB PO SCH ×5 (08:49→22:05)
[2017-07-10] MEDS: COLLAGENASE 30 GM TUBE TOP SCH (14:59)
--- NOTE | 2017-07-10 18:08 | PN ---
Date/Time of Note Date/Time of Note DATE: 07/10/17 TIME: 18:06 Assessment/Plan VTE Prophylaxis VTE Prophylaxis Intervention: SCD's Lines/Catheters IV Catheter Type (from Nrsg): Peripheral IV Urinary Cath still in place: Yes Reason Cath still needed: other (indicate) (not) Assessment/Plan Assessment/Plan 67 yo F with Parkinsons presents with constipation, abd pain, fever. Likely 2/2 UTI +/- ADR to her new PD regimen. PLAN -cont empiric abx dc vanc as only GNRs in urine -sp enema -phone cs with neurologist (david) on 07.08, outpatient f/u was advised DVT prophx cont SSRI Subjective 24 Hr Interval Summary Free Text/Dictation c/o pain in L ear Exam/Review of Systems Vital Signs Vitals Vital Signs Date Time Temp Pulse Resp B/P Pulse Ox O2 Delivery O2 Flow Rate FiO2 07/10/17 16:16 94 07/10/17 15:59 97.9 18 123/64 96 07/08/17 14:27 Room Air Intake and Output 07/09/17 07/09/17 07/10/17 15:00 23:00 07:00 Intake Total 930 ml 940 ml Output Total 600 ml 550 ml Balance 330 ml 390 ml Exam nad ,laying in bed TMs: R TM clear, L TM only partially visible 2/2 cerumen in EAC but on limited view no bulging abd distension improved somewhat no rashes lungs clear urine culture data reviewed Results Result Diagram: 07/09/17 0708 07/09/17 0708 Results 24 hrs Laboratory Tests Test 07/09/17 21:27 07/10/17 08:45 07/10/17 12:00 07/10/17 12:03 Bedside Glucose 119 114 105 Vancomycin Level Trough 7.2 L Test 07/10/17 17:26 Bedside Glucose 139 Medications Medications Current Medications Sodium Chloride (NS) 1,000 ml @ 80 mls/hr [id number] IV Last administered on 07/10t 05:18; Admin Dose 80 MLS/HR; Start 07/08/17 at 05:56 Ondansetron HCl (Zofran Inj) 4 mg Q6H PRN IV NAUSEA AND/OR VOMITING; Start 09/14 at 06:00 Acetaminophen (Tylenol Tab) 650 mg Q6H PRN PO PAIN LEVEL 1-3 OR FEVER Last administered on 07/10/17 08:47; Admin Dose 650 MG; Start 07/08/17 at 06:00 Morphine Sulfate (morphine) 2 mg Q4H PRN IV PAIN LEVEL 7-10; Start 07/08/17 at 06:00 Famotidine (Pepcid) 20 mg Q12 PO Last administered on 07/10/17 08:47; Admin Dose 20 MG; Start 07/08/17 at 09:00 Paroxetine HCl (Paxil) 20 mg HS PO Last administered on 07/09/17 21:30; Admin Dose 20 MG; Start 07/08/17 at 21:00 Pramipexole (Mirapex) 0.5 mg TID PO Last administered on 07/10/17 13:18; Admin Dose 0.5 MG; Start 07/08/17 at 09:00 Rasagiline (Azilect) 1 mg DAILY PO Last administered on 07/10/17 08:47; Admin Dose 1 MG; Start 07/08/17 at 09:00 Polyethylene Glycol (Miralax) 17 gm DAILY PRN PO CONSTIPATION Last administered on 07/08/17 19:03; Admin Dose 17 GM; Start 07/08/17 at 17:00 Levofloxacin (Levaquin) 750 mg DAILY@06 PO Last administered on 07/10/17 05:18 ; Admin Dose 750 MG; Start 07/09/17 at 06:00 Diagnostic Test (Pha) (Accu-Chek) 1 ea 02 XX ; Start 07/10/17 at 02:00 Miscellaneous Information 1 ea NOTE XX ; Start 07/09/17 at 05:00 Glucose (Glutose) 15 gm Q15M PRN PO DECREASED GLUCOSE; Start 07/09/17 at 05:00 Glucose (Glutose) 22.5 gm Q15M PRN PO DECREASED GLUCOSE; Start 07/09/17 at 05: 00 Dextrose (D50w Syringe) 25 ml Q15M PRN IV DECREASED GLUCOSE; Start 07/09/17 at 05:00 Dextrose (D50w Syringe) 50 ml Q15M PRN IV DECREASED GLUCOSE; Start 07/09/17 at 05:00 Glucagon (Glucagen) 1 mg Q15M PRN IM DECREASED GLUCOSE; Start 07/09/17 at 05:00 Glucose 15 gm 15 gm Q15M PRN BUCCAL DECREASED GLUCOSE; Start 07/09/17 at 05:00 Vancomycin HCl (Vancocin) 250 ml @ 125 mls/hr Q12H IVPB Last administered on 13:18; Admin Dose 125 MLS/HR; Start 07/09/17 at 13:00; Stop 07/10/17 at 19:00 Sodium Biphosphate/ Sodium Phosphate 133 ml 133 ml DAILY PRN [place] CONSTIPATION Last administered on 07/09/17 13:18; Admin Dose 133 ML; Start 07/09/17 at 11:00 Vancomycin HCl/ Sodium Chloride (Vancocin/NS) 250 ml @ 83.333 mls/ hr Q12H IVPB ; Start 07/10/17 at 23:00 Collagenase (Santyl) 1 applic DAILY TOP Last administered on 07/10/17 14:59; Admin Dose 1 APPLIC; Start 07/10/17 at 14:55 Carbamide Peroxide (Debrox Otic) 3 drop BID BOTH EARS ; Start 07/10/17 at 21:00 ; Status UNV SJ MCDOWELL MD Jul 10, 2017 18:08
[2017-07-10] MEDS: PAROXETINE 20 MG TAB PO SCH (21:57)
[2017-07-10] MEDS: CARBAMIDE PEROXIDE 6.5% 15ML OTIC BOTH EARS SCH (21:57)
[2017-07-10] MEDS ORDERED: VANCOMYCIN 1.5 GM in SOD CHLORIDE 0.9% 250 ML IVPB SCH (23:00)
[2017-07-11] MEDS: LEVOFLOXACIN 750 MG TABLET PO SCH (06:26)
[2017-07-11 07:34] VITALS: BP 142/75; RESP 18
[2017-07-11] MEDS: INSULIN ASPART [NOVOLOG] 3 ML PEN SC SCH ×4 (08:00→21:00)
[2017-07-11 08:49] LABS: CREATININE 0.46 mg/dl (0.44-1.00)
[2017-07-11] MEDS: CARBAMIDE PEROXIDE 6.5% 15ML OTIC BOTH EARS SCH ×2 (09:00→21:20)
[2017-07-11] MEDS: FAMOTIDINE 20 MG TAB PO SCH ×2 (09:53→21:18)
[2017-07-11] MEDS: PRAMIPEXOLE 0.25 MG TAB PO SCH ×3 (09:53→21:18)
[2017-07-11] MEDS: RASAGILINE MESYLATE 1 MG TAB PO SCH (09:53)
[2017-07-11] MEDS: CARBIDOPA/LEVODOPA (10/100) TAB PO SCH ×5 (09:53→21:18)
[2017-07-11] MEDS: COLLAGENASE 30 GM TUBE TOP SCH (09:55)
[2017-07-11 10:12] VITALS: BP 163/76; RESP 19
--- NOTE | 2017-07-11 16:28 | PN ---
Date/Time of Note Date/Time of Note DATE: 07/11/17 TIME: 16:28 Assessment/Plan VTE Prophylaxis VTE Prophylaxis Intervention: SCD's Lines/Catheters IV Catheter Type (from Nrsg): Saline Lock Urinary Cath still in place: No Assessment/Plan Assessment/Plan Assessment/Plan 67 yo F with Parkinsons presents with constipation, abd pain, fever. Likely 2/2 pyelo +/- ADR to her new PD regimen. PLAN -given fever on admit, prudent to treat for pyelo with 7 days PO levoflox. stop date entered -repeat abd xr -shoulder xr per patient request -consider calling home neuro in AM cont SSRI DVT prophx Subjective 24 Hr Interval Summary Free Text/Dictation having BMs but abd still distended. Also c/o R shoulder pain Exam/Review of Systems Vital Signs Vitals Vital Signs Date Time Temp Pulse Resp B/P Pulse Ox O2 Delivery O2 Flow Rate FiO2 07/11/17 10:12 98.5 73 19 163/76 98 07/08/17 14:27 Room Air Intake and Output 07/10/17 07/10/17 07/11/17 15:00 23:00 07:00 Intake Total 2150 ml Output Total 500 ml Balance 1650 ml Exam full AROM R shoulder no mrg lungs clear abd mildly distended no rashes Results Result Diagram: 07/09/17 0708 07/11/17 0732 Results 24 hrs Laboratory Tests Test 07/10/17 17:26 07/10/17 22:06 07/11/17 07:32 07/11/17 08:07 Bedside Glucose 139 166 96 Blood Urea Nitrogen 9 Creatinine 0.46 Test 07/11/17 12:39 Bedside Glucose 97 Medications Medications Current Medications Ondansetron HCl (Zofran Inj) 4 mg Q6H PRN IV NAUSEA AND/OR VOMITING; Start 09/14 at 06:00 Acetaminophen (Tylenol Tab) 650 mg Q6H PRN PO PAIN LEVEL 1-3 OR FEVER Last administered on 07/10/17 08:47; Admin Dose 650 MG; Start 07/08/17 at 06:00 Morphine Sulfate (morphine) 2 mg Q4H PRN IV PAIN LEVEL 7-10; Start 07/08/17 at 06:00 Famotidine (Pepcid) 20 mg Q12 PO Last administered on 07/11/17 09:53; Admin Dose 20 MG; Start 07/08/17 at 09:00 Paroxetine HCl (Paxil) 20 mg HS PO Last administered on 07/10/17 21:57; Admin Dose 20 MG; Start 07/08/17 at 21:00 Pramipexole (Mirapex) 0.5 mg TID PO Last administered on 07/11/17 14:07; Admin Dose 0.5 MG; Start 07/08/17 at 09:00 Rasagiline (Azilect) 1 mg DAILY PO Last administered on 07/11/17 09:53; Admin Dose 1 MG; Start 07/08/17 at 09:00 Polyethylene Glycol (Miralax) 17 gm DAILY PRN PO CONSTIPATION Last administered on 07/08/17 19:03; Admin Dose 17 GM; Start 07/08/17 at 17:00 Levofloxacin (Levaquin) 750 mg DAILY@06 PO Last administered on 07/11/17 06:26 ; Admin Dose 750 MG; Start 07/09/17 at 06:00 Diagnostic Test (Pha) (Accu-Chek) 1 ea 02 XX ; Start 07/10/17 at 02:00 Miscellaneous Information 1 ea NOTE XX ; Start 07/09/17 at 05:00 Glucose (Glutose) 15 gm Q15M PRN PO DECREASED GLUCOSE; Start 07/09/17 at 05:00 Glucose (Glutose) 22.5 gm Q15M PRN PO DECREASED GLUCOSE; Start 07/09/17 at 05: 00 Dextrose (D50w Syringe) 25 ml Q15M PRN IV DECREASED GLUCOSE; Start 07/09/17 at 05:00 Dextrose (D50w Syringe) 50 ml Q15M PRN IV DECREASED GLUCOSE; Start 07/09/17 at 05:00 Glucagon (Glucagen) 1 mg Q15M PRN IM DECREASED GLUCOSE; Start 07/09/17 at 05:00 Glucose (Glutose) 15 gm Q15M PRN BUCCAL DECREASED GLUCOSE; Start 07/09/17 at 05 :00 Sodium Biphosphate/ Sodium Phosphate (Fleet Enema) 133 ml DAILY PRN [place] CONSTIPATION Last administered on 07/09/17 13:18; Admin Dose 133 ML; Start 10/15 at 11:00 Collagenase (Santyl) 1 applic DAILY TOP Last administered on 07/11/17 09:55; Admin Dose 1 APPLIC; Start 07/10/17 at 14:55 Carbamide Peroxide (Debrox Otic) 3 drop BID BOTH EARS Last administered on 07/10 21:57; Admin Dose 3 DROP; Start 07/10/17 at 21:00 SJ MCDOWELL MD Jul 11, 2017 16:28
[2017-07-11 19:05] VITALS: BP 142/75; RESP 18
--- NOTE | 2017-07-11 19:17 | RADRPT ---
PROCEDURE: Abdominal radiograph CLINICAL INDICATION: Abdominal distension. COMPARISON: Radiograph 07/08/2017. TECHNIQUE: AP view of the abdomen. FINDINGS: The visualized lung bases are clear. The transverse colon is distended with air to 6.3 cm. Multiple loops of small are distended with air to 4.5 cm. The degree of distension has increased since 07/08/2017. No fluid levels. No suspicious calcifications. Levoconvex curvature of the lower lumbar spine with moderate associated degenerative changes. IMPRESSION: Interval increase in distension of the large and small bowel, consistent with ileus or obstruction. RPTAT: PP Physician Edouard Date Time Electronically viewed and signed by Physician Edouard on 07/11/2017 19:17 LG/
--- NOTE | 2017-07-11 19:19 | RADRPT ---
PROCEDURE: Shoulder radiograph CLINICAL INDICATION: Right-sided pain. COMPARISON: Radiograph 06/01/2017. TECHNIQUE: Two views of the right shoulder. FINDINGS: No fracture or destructive bone lesion. Alignment is anatomic. Small marginal osteophytes along the acromioclavicular joint. The glenohumeral joint space is preserved. The visualized lung is clear. IMPRESSION: No acute fracture or dislocation. RPTAT: PP Hazel Rodrigez Physician Date Time Electronically viewed and signed by Hazel Rodrigez Physician on 07/11/2017 19:18 LG/
--- NOTE | 2017-07-11 19:21 | RADRPT ---
PROCEDURE: Humerus radiographs CLINICAL INDICATION: R side pain>. COMPARISON: None relevant listed. TECHNIQUE: AP and lateral views of the right humerus were performed. FINDINGS: Alignment is anatomic. No fracture or destructive bone lesion. Joint spaces are preserved. No localized soft tissue swelling. IMPRESSION: No acute fracture or dislocation. RPTAT: PP Physician Edouard Date Time Electronically viewed and signed by Hazel Rodrigez Physician on 07/11/2017 19:21 LG/
--- NOTE | 2017-07-11 19:26 | RADRPT ---
PROCEDURE: Chest and Rib radiographs CLINICAL INDICATION: R side pain. COMPARISON: None relevant listed. TECHNIQUE: PA view of the chest and right ribs were obtained. FINDINGS: No rib fracture identified. Subcortical cysts in the right humeral head suggesting rotator cuff arthropathy. Small marginal osteophytes along the acromioclavicular joint. The visualized lungs are clear. Aortic atherosclerosis. The large bowel distended with air. IMPRESSION: No displaced rib fracture identified RPTAT: PP Physician Edouard Date Time Electronically viewed and signed by Physician Edouard on 07/11/2017 19:25 LG/
[2017-07-11] MEDS: PAROXETINE 20 MG TAB PO SCH (21:18)
[2017-07-12] MEDS: POTASSIUM CHLORIDE 250 ML IVPB SCH ×2 (01:24→05:33)
[2017-07-12] MEDS: ACCU-CHEK XX SCH (01:36)
[2017-07-12 01:37] VITALS: BP 128/80; RESP 18
[2017-07-12] MEDS: LEVOFLOXACIN 750 MG TABLET PO SCH (05:33)
[2017-07-12 08:30] VITALS: BP 132/66; RESP 16
[2017-07-12] MEDS: INSULIN ASPART [NOVOLOG] 3 ML PEN SC SCH ×4 (08:30→21:00)
[2017-07-12] MEDS: CARBIDOPA/LEVODOPA (10/100) TAB PO SCH ×5 (09:24→21:44)
[2017-07-12] MEDS: RASAGILINE MESYLATE 1 MG TAB PO SCH (09:24)
[2017-07-12] MEDS: CARBAMIDE PEROXIDE 6.5% 15ML OTIC BOTH EARS SCH ×2 (09:25→21:44)
[2017-07-12] MEDS: COLLAGENASE 30 GM TUBE TOP SCH (09:25)
[2017-07-12] MEDS: FAMOTIDINE 20 MG TAB PO SCH ×2 (09:25→21:44)
[2017-07-12] MEDS: PRAMIPEXOLE 0.25 MG TAB PO SCH ×3 (09:25→21:44)
[2017-07-12] MEDS ORDERED: BARIUM SULF 2% 450 ML BTL (BERRY SMOOTHIE) PO ONE ×2 (10:30)
[2017-07-12] MEDS ORDERED: LORAZEPAM 2 MG INJ IV PRN (10:30)
[2017-07-12 11:53] LABS: BASOPHILS % 0.3 % (0.0-2.0); EOSINOPHILS # 0.1 10^3/ul (0.0-0.5); EOSINOPHILS % 1.5 % (0.0-7.0); HEMOGLOBIN 12.9 g/dl (12.0-16.0); LYMPHOCYTES # 1.4 10^3/ul (0.8-2.9); LYMPHOCYTES % 14.7 % (15.0-51.0); MEAN CORPUSCULAR HEMOGLOBIN 31.9 pg (29.0-33.0); MEAN CORPUSCULAR HGB CONC 33.9 g/dl (32.0-37.0); MEAN CORPUSCULAR VOLUME 94.1 fl (82.0-101.0); MEAN PLATELET VOLUME 9.3 fl (7.4-10.4); MONOCYTE # 0.5 10^3/ul (0.3-0.9); MONOCYTES % 5.3 % (0.0-11.0); NEUTROPHIL # 7.2 10^3/ul (1.6-7.5); NEUTROPHILS % 77.8 % (39.0-77.0); PLATELET COUNT 171 10^3/UL (140-415); RED BLOOD COUNT 4.04 10^6/ul (4.20-5.40); RED CELL DISTRIBUTION WIDTH 12.9 % (11.5-14.5); WHITE BLOOD COUNT 9.3 10^3/ul (4.8-10.8)
[2017-07-12 12:13] LABS: CALCIUM 7.9 mg/dl (8.4-10.2); CREATININE 0.47 mg/dl (0.44-1.00); POTASSIUM 3.6 mmol/L (3.5-5.1)
[2017-07-12 12:14] LABS: PHOSPHORUS 1.8 mg/dl (2.5-4.9)
--- NOTE | 2017-07-12 13:40 | PN ---
Date/Time of Note Date/Time of Note DATE: 07/12/17 TIME: 13:32 Assessment/Plan VTE Prophylaxis VTE Prophylaxis Intervention: SCD's Lines/Catheters IV [facility]from [facility] Saline Lock Urinary Cath still in place: No Assessment/Plan Chief Complaint/Hosp Course Assessment/Plan: 67 yo F with Parkinson presents with constipation, abd pain, fever. Likely 2/2 pyelo +/- ADR to her new PD regimen. 1. Sepsis secondary to UTI: Slowly improving. Urine culture positive for Klebsiella pneumonia, Proteus, E. coli bugs. -Continue Levaquin. stop date entered -Monitor CBC daily 2. Abdominal distention: Possible SBO found repeat abd xr yesterday -We will get surgery consult, CT scan with IV contrast as well to further evaluate. N.p.o. 3. Parkinson's disease: Stable present -Continue Sinemet, Mirapex, Azilect meds 4. Type 2 diabetes: A1c equals 6.1. - Continue sliding scale insulin 5. GI prophylaxis: H2 marcela 6. Low phosphorus: Replete Problems: Subjective 24 Hr Interval Summary Free Text/Dictation Patient with some abdominal distention this morning, and KUB yesterday did show signs of possible bowel obstruction. Was somewhat agitated this morning, better now. Refused NG tube placement. Awaiting CT scan of abdomen. Exam/Review of Systems Vital Signs Vitals Vital Signs Date Time Temp Pulse Resp B/P Pulse Ox O2 Delivery O2 Flow Rate FiO2 07/12/17 08:30 98.8 86 16 132/66 98 07/11/17 20:00 Nasal Cannula 2.0 Intake and Output 07/11/17 07/11/17 07/12/17 15:00 23:00 07:00 Intake Total 500 ml 650 ml Balance 500 ml 650 ml Exam Lying in bed, in mild distress, at bedside full AROM R shoulder no mrg lungs clear abd distended, somewhat firm no lower extremity edema bilateral Results Result Diagram: 07/12/17 1100 07/12/17 1100 Results 24 hrs Laboratory Tests Test 07/11/17 17:48 07/11/17 21:16 07/11/17 23:35 07/12/17 08:54 Bedside Glucose 113 97 118 Potassium Level 2.8 *L Test 07/12/17 11:00 07/12/17 12:40 White Blood Count 9.3 Red Blood Count 4.04 L Hemoglobin 12.9 Hematocrit 38.0 Mean Corpuscular Volume 94.1 Mean Corpuscular Hemoglobin 31.9 Mean Corpuscular Hemoglobin Concent 33.9 Red Cell Distribution Width 12.9 Platelet Count 171 Mean Platelet Volume 9.3 Neutrophils % 77.8 H Lymphocytes % 14.7 L Monocytes % 5.3 Eosinophils % 1.5 Basophils % 0.3 Nucleated Red Blood Cells % 0.0 Neutrophils # 7.2 Lymphocytes # 1.4 Monocytes # 0.5 Eosinophils # 0.1 Basophils # 0.0 Nucleated Red Blood Cells # 0.0 Sodium Level 136 Potassium Level 3.6 Chloride Level 103 Carbon Dioxide Level 25 Anion Gap 12 Blood Urea Nitrogen 10 Creatinine 0.47 Glucose Level 124 Calcium Level 7.9 L Phosphorus Level 1.8 L Magnesium Level 2.0 Bedside Glucose 120 Medications Medications Current Medications Ondansetron HCl (Zofran Inj) 4 mg Q6H PRN IV NAUSEA AND/OR VOMITING; Start 09/14 at 06:00 Acetaminophen (Tylenol Tab) 650 mg Q6H PRN PO PAIN LEVEL 1-3 OR FEVER Last administered on 07/10/17 08:47; Admin Dose 650 MG; Start 07/08/17 at 06:00 Morphine Sulfate (morphine) 2 mg Q4H PRN IV PAIN LEVEL 7-10 Last administered on 07/12/17 09:26; Admin Dose 2 MG; Start 07/08/17 at 06:00 Famotidine (Pepcid) 20 mg Q12 PO Last administered on 07/12/17 09:25; Admin Dose 20 MG; Start 07/08/17 at 09:00 Paroxetine HCl (Paxil) 20 mg HS PO Last administered on 07/11/17 21:18; Admin Dose 20 MG; Start 07/08/17 at 21:00 Pramipexole (Mirapex) 0.5 mg TID PO Last administered on 07/12/17 12:59; Admin Dose 0.5 MG; Start 07/08/17 at 09:00 Rasagiline (Azilect) 1 mg DAILY PO Last administered on 07/12/17 09:24; Admin Dose 1 MG; Start 07/08/17 at 09:00 Polyethylene Glycol (Miralax) 17 gm DAILY PRN PO CONSTIPATION Last administered on 07/08/17 19:03; Admin Dose 17 GM; Start 07/08/17 at 17:00 Levofloxacin (Levaquin) 750 mg DAILY@06 PO Last administered on 07/12/17 05:33 ; Admin Dose 750 MG; Start 07/09/17 at 06:00; Stop 07/15/17 at 07:30 Diagnostic Test (Pha) (Accu-Chek) 1 ea 02 XX ; Start 07/10/17 at 02:00 Miscellaneous Information 1 ea NOTE XX ; Start 07/09/17 at 05:00 Glucose (Glutose) 15 gm Q15M PRN PO DECREASED GLUCOSE; Start 07/09/17 at 05:00 Glucose (Glutose) 22.5 gm Q15M PRN PO DECREASED GLUCOSE; Start 07/09/17 at 05: 00 Dextrose (D50w Syringe) 25 ml Q15M PRN IV DECREASED GLUCOSE; Start 07/09/17 at 05:00 Dextrose (D50w Syringe) 50 ml Q15M PRN IV DECREASED GLUCOSE; Start 07/09/17 at 05:00 Glucagon (Glucagen) 1 mg Q15M PRN IM DECREASED GLUCOSE; Start 07/09/17 at 05:00 Glucose (Glutose) 15 gm Q15M PRN BUCCAL DECREASED GLUCOSE; Start 07/09/17 at 05 :00 Sodium Biphosphate/ Sodium Phosphate (Fleet Enema) 133 ml DAILY PRN [place] CONSTIPATION Last administered on 07/09/17 13:18; Admin Dose 133 ML; Start 10/15 at 11:00 Collagenase (Santyl) 1 applic DAILY TOP Last administered on 07/12/17 09:25; Admin Dose 1 APPLIC; Start 07/10/17 at 14:55 Carbamide Peroxide (Debrox Otic) 3 drop BID BOTH EARS Last administered on 07/12 09:25; Admin Dose 3 DROP; Start 07/10/17 at 21:00 Lorazepam 1 mg 1 mg Q6H PRN IV AGITATION/ANXIETY; Start 07/12/17 at 10:30 Potassium Phosphate/Sodium Chloride (K Phos (Meq)/NS) 509.0909 ml @ 63.636 m... ONCE ONCE IVPB ; Start 07/12/17 at 15:00; Stop 07/12/17 at 22:59 TONY PATE Jul 12, 2017 13:40
[2017-07-12] MEDS ORDERED: IODIXANOL LOCM 100 ML BTL ONE (13:52)
[2017-07-12] MEDS ORDERED: SOD CHLORIDE 0.9% 100 ML ONE (13:52)
--- NOTE | 2017-07-12 14:39 | RADRPT ---
PROCEDURE: CT Abdomen and Pelvis with contrast. CLINICAL INDICATION: Abdominal pain, evaluate for bowel obstruction TECHNIQUE: CT of the abdomen and pelvis was performed on a multi-detector scanner following the un complicated IV administration of 100 cc of Visipaque 320. Coronal and sagittal images were reformat nick from the axial data set. One or more of the following dose reduction techniques were used: auto mated exposure control, adjustment of the mA and/or kV according to patient size, use of iterative reconstruction technique. CTDI = 19.46 mGy. DLP = 1252.66 mGy-cm. COMPARISON: CT, 07/08/2017 FINDINGS: CT abdomen: The lung bases are clear. The heart size is normal, without pericardial effusion. Liver, gallbladd er, biliary tree, pancreas, spleen, adrenal glands and kidneys are unremarkable. No urolithiasis or obstructive uropathy is identified. The stomach is grossly unremarkable. There is no abdominal aortic aneurysm or dissection. Aortic vascular calcifications are present. T here is no retroperitoneal lymphadenopathy. The neetu hepatis region is clear. CT pelvis: There is moderate diffuse gaseous distension of large and small bowel, without evidence of transitio n point or collapsed loops, suggestive of ileus. Mild amount of peritoneal free fluid is present, l ikely reactive. There is no free intraperitoneal air or abscess. No diverticulosis, diverticulitis , colitis or appendicitis is seen. Fat-containing periumbilical ventral hernia is noted without inc arceration. Urinary bladder, uterus and adnexa are grossly unremarkable. No pelvic mass or lymphad enopathy is seen. The surrounding osseous structures are remarkable for degenerative enthesopathy of the spine. No os teolytic or osteoblastic lesion is detected. IMPRESSION: 1. Finding is suggestive of ileus, as described above. Mild amount of peritoneal free fluid is pre sent, likely reactive. No free intraperitoneal air, abscess, or gross evidence of bowel obstruction is identified. 2. Aortoiliac atherosclerotic calcifications are present. 3. Fat-containing periumbilical ventral hernia is seen without incarceration. 4. No mass or lymphadenopathy is identified. RPTAT: PP .Isac Henson MD, MD Date Time Electronically viewed and signed by .Isac Henson MD, on 07/12/2017 14:38 .R/
[2017-07-12] MEDS ORDERED: SOD CHLORIDE 0.9% IVPB ONE (15:00)
[2017-07-12] MEDS ORDERED: POTASSIUM PHOSPHATE IVPB ONE (15:00)
[2017-07-12 19:05] VITALS: BP 139/78; RESP 18
[2017-07-12] MEDS ORDERED: KETOROLAC 15 MG INJ IV PRN (20:00)
--- NOTE | 2017-07-12 20:00 | CONS ---
Date/Time of Note Date/Time of Note DATE: 07/12/17 TIME: 20:00 Assessment/Plan Assessment/Plan Additional Assessment/Plan Resolving ileus Patient states she feels better has had multiple bowel movements today Would hold off on NG tube Continue to manage with IV fluids and n.p.o. Advance diet slowly This is a nonsurgical case Continue current care and if needed recommend GI consultation Consultation Date/Type/Reason Admit Date/Time Date of Consultation: Jul 12, 2017 Reason for Consultation Abdominal distention Hx of Present Illness The patient is a 67-year-old female who was admitted a few days ago for sepsis secondary to UTI. Beginning yesterday she developed abdominal distention and a KUB was concerning for small bowel obstruction. I was called for consultation. Past Medical History Parkinson's disease Medical History: angina, GERD Past Surgical History Past Surgical Hx: no surgical history Family History Significant Family History: no pertinent family hx Social History Alcohol Use: none Smoking Status: Never smoker Drug Use: none Exam/Review of Systems Vital Signs Vitals Vital Signs Date Time Temp Pulse Resp B/P Pulse Ox O2 Delivery O2 Flow Rate FiO2 07/12/17 19:05 98.0 71 18 139/78 96 07/11/17 20:00 Nasal Cannula 2.0 Intake and Output 07/11/17 07/11/17 07/12/17 15:00 23:00 07:00 Intake Total 500 ml 650 ml Balance 500 ml 650 ml Exam Psych: nl mood/affect, no complaints Head: atraumatic, normocephalic Eyes: nl conjunctiva ENMT: nl external ears & nose Neck: non-tender, supple Respiratory: clear to auscultation Cardiovascular: nl pulses Gastrointestinal: other (Moderately distended but nontender), soft Neurological: SUPERVISOR PASTRY II-XII intact Skin: nl turgor Lymph: nl lymph nodes Results Result Diagram: 07/12/17 1100 07/12/17 1100 Results 24 hrs Laboratory Tests Test 07/11/17 21:16 07/11/17 23:35 07/12/17 08:54 07/12/17 11:00 Bedside Glucose 97 118 Potassium Level 2.8 *L 3.6 White Blood Count 9.3 Red Blood Count 4.04 L Hemoglobin 12.9 Hematocrit 38.0 Mean Corpuscular Volume 94.1 Mean Corpuscular Hemoglobin 31.9 Mean Corpuscular Hemoglobin Concent 33.9 Red Cell Distribution Width 12.9 Platelet Count 171 Mean Platelet Volume 9.3 Neutrophils % 77.8 H Lymphocytes % 14.7 L Monocytes % 5.3 Eosinophils % 1.5 Basophils % 0.3 Nucleated Red Blood Cells % 0.0 Neutrophils # 7.2 Lymphocytes # 1.4 Monocytes # 0.5 Eosinophils # 0.1 Basophils # 0.0 Nucleated Red Blood Cells # 0.0 Sodium Level 136 Chloride Level 103 Carbon Dioxide Level 25 Anion Gap 12 Blood Urea Nitrogen 10 Creatinine 0.47 Glucose Level 124 Calcium Level 7.9 L Phosphorus Level 1.8 L Magnesium Level 2.0 Test 07/12/17 12:40 07/12/17 18:32 Bedside Glucose 120 104 Medications Medications Current Medications Ondansetron HCl (Zofran Inj) 4 mg Q6H PRN IV NAUSEA AND/OR VOMITING; Start 09/14 at 06:00 Acetaminophen (Tylenol Tab) 650 mg Q6H PRN PO PAIN LEVEL 1-3 OR FEVER Last administered on 07/10/17 08:47; Admin Dose 650 MG; Start 07/08/17 at 06:00 Morphine Sulfate (morphine) 2 mg Q4H PRN IV PAIN LEVEL 7-10 Last administered on 07/12/17 09:26; Admin Dose 2 MG; Start 07/08/17 at 06:00 Famotidine (Pepcid) 20 mg Q12 PO Last administered on 07/12/17 09:25; Admin Dose 20 MG; Start 07/08/17 at 09:00 Paroxetine HCl (Paxil) 20 mg HS PO Last administered on 07/11/17 21:18; Admin Dose 20 MG; Start 07/08/17 at 21:00 Pramipexole (Mirapex) 0.5 mg TID PO Last administered on 07/12/17 12:59; Admin Dose 0.5 MG; Start 07/08/17 at 09:00 Rasagiline (Azilect) 1 mg DAILY PO Last administered on 07/12/17 09:24; Admin Dose 1 MG; Start 07/08/17 at 09:00 Polyethylene Glycol (Miralax) 17 gm DAILY PRN PO CONSTIPATION Last administered on 07/08/17 19:03; Admin Dose 17 GM; Start 07/08/17 at 17:00 Levofloxacin (Levaquin) 750 mg DAILY@06 PO Last administered on 07/12/17 05:33 ; Admin Dose 750 MG; Start 07/09/17 at 06:00; Stop 07/15/17 at 07:30 Diagnostic Test (Pha) (Accu-Chek) 1 ea 02 XX ; Start 07/10/17 at 02:00 Miscellaneous Information 1 ea NOTE XX ; Start 07/09/17 at 05:00 Glucose (Glutose) 15 gm Q15M PRN PO DECREASED GLUCOSE; Start 07/09/17 at 05:00 Glucose (Glutose) 22.5 gm Q15M PRN PO DECREASED GLUCOSE; Start 07/09/17 at 05: 00 Dextrose (D50w Syringe) 25 ml Q15M PRN IV DECREASED GLUCOSE; Start 07/09/17 at 05:00 Dextrose (D50w Syringe) 50 ml Q15M PRN IV DECREASED GLUCOSE; Start 07/09/17 at 05:00 Glucagon (Glucagen) 1 mg Q15M PRN IM DECREASED GLUCOSE; Start 07/09/17 at 05:00 Glucose (Glutose) 15 gm Q15M PRN BUCCAL DECREASED GLUCOSE; Start 07/09/17 at 05 :00 Sodium Biphosphate/ Sodium Phosphate (Fleet Enema) 133 ml DAILY PRN [place] CONSTIPATION Last administered on 07/09/17 13:18; Admin Dose 133 ML; Start 10/15 at 11:00 Collagenase (Santyl) 1 applic DAILY TOP Last administered on 07/12/17 09:25; Admin Dose 1 APPLIC; Start 07/10/17 at 14:55 Carbamide Peroxide (Debrox Otic) 3 drop BID BOTH EARS Last administered on 07/12 09:25; Admin Dose 3 DROP; Start 07/10/17 at 21:00 Lorazepam 1 mg 1 mg Q6H PRN IV AGITATION/ANXIETY; Start 07/12/17 at 10:30 Potassium Phosphate/Sodium Chloride (K Phos (Meq)/NS) 509.0909 ml @ 63.636 m... ONCE ONCE IVPB Last administered on 07/12/17 15:24; Admin Dose 63.636 MLS/HR; Start 07/12/17 at 15:00; Stop 07/12/17 at 22:59 Procedures Procedures PROCEDURE: CT Abdomen and Pelvis with contrast. CLINICAL INDICATION: Abdominal pain, evaluate for bowel obstruction TECHNIQUE: CT of the abdomen and pelvis was performed on a multi-detector scanner following the uncomplicated IV administration of 100 cc of Visipaque 320. Coronal and sagittal images were reformatted from the axial data set. One or more of the following dose reduction techniques were used: automated exposure control, adjustment of the mA and/or kV according to patient size, use of iterative reconstruction technique. CTDI = 19.46 mGy. DLP = 1252.66 mGy- cm. COMPARISON: CT, 07/08/2017 FINDINGS: CT abdomen: The lung bases are clear. The heart size is normal, without pericardial effusion. Liver, gallbladder, biliary tree, pancreas, spleen, adrenal glands and kidneys are unremarkable. No urolithiasis or obstructive uropathy is identified. The stomach is grossly unremarkable. There is no abdominal aortic aneurysm or dissection. Aortic vascular calcifications are present. There is no retroperitoneal lymphadenopathy. The neetu hepatis region is clear. CT pelvis: There is moderate diffuse gaseous distension of large and small bowel, without evidence of transition point or collapsed loops, suggestive of ileus. Mild amount of peritoneal free fluid is present, likely reactive. There is no free intraperitoneal air or abscess. No diverticulosis, diverticulitis, colitis or appendicitis is seen. Fat-containing periumbilical ventral hernia is noted without incarceration. Urinary bladder, uterus and adnexa are grossly unremarkable. No pelvic mass or lymphadenopathy is seen. The surrounding osseous structures are remarkable for degenerative enthesopathy of the spine. No osteolytic or osteoblastic lesion is detected. IMPRESSION: 1. Finding is suggestive of ileus, as described above. Mild amount of peritoneal free fluid is present, likely reactive. No free intraperitoneal air , abscess, or gross evidence of bowel obstruction is identified. 2. Aortoiliac atherosclerotic calcifications are present. 3. Fat-containing periumbilical ventral hernia is seen without incarceration. YOLANDA LUGO MD Jul 12, 2017 20:00
[2017-07-12] MEDS: D5-NS + KCL 20 MEQ 1,000 ML IV SCH (21:41)
[2017-07-12] MEDS: PAROXETINE 20 MG TAB PO SCH (21:44)
[2017-07-13] MEDS: ACCU-CHEK XX SCH ×3 (01:10→21:15)
[2017-07-13 02:48] VITALS: BP 156/83; RESP 16
[2017-07-13] MEDS: D5-NS + KCL 20 MEQ 1,000 ML IV SCH ×3 (05:16→22:20)
[2017-07-13 05:22] LABS: BASOPHILS % 0.5 % (0.0-2.0); EOSINOPHILS # 0.2 10^3/ul (0.0-0.5); EOSINOPHILS % 2.5 % (0.0-7.0); HEMATOCRIT 36.3 % (37.0-47.0); HEMOGLOBIN 12.6 g/dl (12.0-16.0); LYMPHOCYTES # 1.3 10^3/ul (0.8-2.9); LYMPHOCYTES % 20.8 % (15.0-51.0); MEAN CORPUSCULAR HEMOGLOBIN 32.8 pg (29.0-33.0); MEAN CORPUSCULAR HGB CONC 34.7 g/dl (32.0-37.0); MEAN CORPUSCULAR VOLUME 94.5 fl (82.0-101.0); MEAN PLATELET VOLUME 9.2 fl (7.4-10.4); MONOCYTE # 0.4 10^3/ul (0.3-0.9); MONOCYTES % 5.8 % (0.0-11.0); NEUTROPHILS % 70.1 % (39.0-77.0); PLATELET COUNT 157 10^3/UL (140-415); RED BLOOD COUNT 3.84 10^6/ul (4.20-5.40); RED CELL DISTRIBUTION WIDTH 12.9 % (11.5-14.5); WHITE BLOOD COUNT 6.4 10^3/ul (4.8-10.8)
[2017-07-13 05:42] LABS: CALCIUM 7.6 mg/dl (8.4-10.2); CREATININE 0.39 mg/dl (0.44-1.00); POTASSIUM 3.4 mmol/L (3.5-5.1)
[2017-07-13] MEDS: LEVOFLOXACIN 750 MG TABLET PO SCH (05:43)
[2017-07-13 05:45] LABS: MAGNESIUM 1.9 mg/dl (1.7-2.5); PHOSPHORUS 2.5 mg/dl (2.5-4.9)
[2017-07-13 07:00] VITALS: BP 138/80; RESP 18
[2017-07-13] MEDS: INSULIN ASPART [NOVOLOG] 3 ML PEN SC SCH ×5 (07:50→21:00)
[2017-07-13] MEDS: CARBAMIDE PEROXIDE 6.5% 15ML OTIC BOTH EARS SCH ×2 (09:05→21:14)
[2017-07-13] MEDS: RASAGILINE MESYLATE 1 MG TAB PO SCH (09:05)
[2017-07-13] MEDS: PRAMIPEXOLE 0.25 MG TAB PO SCH ×3 (09:05→21:14)
[2017-07-13] MEDS: CARBIDOPA/LEVODOPA (10/100) TAB PO SCH ×5 (09:05→21:14)
[2017-07-13] MEDS: FAMOTIDINE 20 MG TAB PO SCH ×2 (09:06→21:14)
[2017-07-13] MEDS: COLLAGENASE 30 GM TUBE TOP SCH (09:07)
[2017-07-13] MEDS ORDERED: PENDING SANTYL ORDER FOR WOUND CARE XX PRN (13:30)
[2017-07-13 14:00] VITALS: BP 137/75; RESP 18
[2017-07-13] MEDS ORDERED: COLLAGENASE 30 GM TUBE TOP PRN (14:00)
--- NOTE | 2017-07-13 14:53 | PN ---
Date/Time of Note Date/Time of Note DATE: 07/13/17 TIME: 14:51 Assessment/Plan VTE Prophylaxis VTE Prophylaxis Intervention: SCD's Lines/Catheters IV Catheter Type (from Nrs): Peripheral IV Urinary Cath still in place: No Assessment/Plan Chief Complaint/Hosp Course Assessment/Plan: 67 yo F with Parkinson presents with constipation, abd pain, fever. Likely 2/2 pyelo +/- ADR to her new PD regimen. 1. Sepsis secondary to UTI: Slowly improving. Urine culture positive for Klebsiella pneumonia, Proteus, E. coli bugs. -Continue Levaquin. stop date entered -Monitor CBC daily 2. Abdominal distention: Secondary to ileus as this was found on CT scan with IV contrast. Appears to be improved today, patient passing gas. -Follow-up surgery recommendations, for now continue n.p.o. status. 3. Parkinson's disease: Stable present -Continue Sinemet, Mirapex, Azilect meds 4. Type 2 diabetes: A1c equals 6.1. - Continue sliding scale insulin 5. GI prophylaxis: H2 marcela Problems: Subjective 24 Hr Interval Summary Free Text/Dictation Patient passing gas, seen by surgery team. Has less abdominal distention/pain now. Exam/Review of Systems Vital Signs Vitals Vital Signs Date Time Temp Pulse Resp B/P Pulse Ox O2 Delivery O2 Flow Rate FiO2 07/13/17 07:00 98.6 72 18 138/80 97 07/12/17 20:00 Nasal Cannula 2.0 Intake and Output 07/12/17 07/12/17 07/13/17 15:00 23:00 07:00 Intake Total 470 ml 990 ml Balance 470 ml 990 ml Exam Lying in bed, in mild distress, at bedside full AROM R shoulder no mrg lungs clear abd less distended, less firm no lower extremity edema bilateral Results Result Diagram: 07/13/172 07/13/17441 Results 24 hrs Laboratory Tests Test 07/12/17 18:32 07/12/17 21:46 07/13/17 04:42 07/13/17 08:09 Bedside Glucose 104 89 122 White Blood Count 6.4 # Red Blood Count 3.84 L Hemoglobin 12.6 Hematocrit 36.3 L Mean Corpuscular Volume 94.5 Mean Corpuscular Hemoglobin 32.8 Mean Corpuscular Hemoglobin Concent 34.7 Red Cell Distribution Width 12.9 Platelet Count 157 Mean Platelet Volume 9.2 Neutrophils % 70.1 Lymphocytes % 20.8 Monocytes % 5.8 Eosinophils % 2.5 Basophils % 0.5 Nucleated Red Blood Cells % 0.0 Neutrophils # (Manual) 4.5 Lymphocytes # 1.3 Monocytes # 0.4 Eosinophils # 0.2 Basophils # 0.0 Nucleated Red Blood Cells # 0.0 Sodium Level 137 Potassium Level 3.4 L Chloride Level 102 Carbon Dioxide Level 26 Anion Gap 12 Blood Urea Nitrogen 6 L Creatinine 0.39 L Glucose Level 94 Calcium Level 7.6 L Phosphorus Level 2.5 Magnesium Level 1.9 Test 07/13/17 12:28 Bedside Glucose 120 Medications Medications Current Medications Ondansetron HCl (Zofran Inj) 4 mg Q6H PRN IV NAUSEA AND/OR VOMITING; Start 09/14 at 06:00 Acetaminophen (Tylenol Tab) 650 mg Q6H PRN PO PAIN LEVEL 1-3 OR FEVER Last administered on 07/10/17 08:47; Admin Dose 650 MG; Start 07/08/17 at 06:00 Famotidine (Pepcid) 20 mg Q12 PO Last administered on 07/13/17 09:06; Admin Dose 20 MG; Start 07/08/17 at 09:00 Paroxetine HCl (Paxil) 20 mg HS PO Last administered on 07/12/17 21:44; Admin Dose 20 MG; Start 07/08/17 at 21:00 Pramipexole (Mirapex) 0.5 mg TID PO Last administered on 07/13/17 12:20; Admin Dose 0.5 MG; Start 07/08/17 at 09:00 Rasagiline (Azilect) 1 mg DAILY PO Last administered on 07/13/17 09:05; Admin Dose 1 MG; Start 07/08/17 at 09:00 Polyethylene Glycol (Miralax) 17 gm DAILY PRN PO CONSTIPATION Last administered on 07/08/17 19:03; Admin Dose 17 GM; Start 07/08/17 at 17:00 Levofloxacin (Levaquin) 750 mg DAILY@06 PO Last administered on 07/13/17 05:43 ; Admin Dose 750 MG; Start 07/09/17 at 06:00; Stop 07/15/17 at 07:30 Diagnostic Test (Pha) (Accu-Chek) 1 ea 02 XX ; Start 07/10/17 at 02:00 Miscellaneous Information 1 ea NOTE XX ; Start 07/09/17 at 05:00 Glucose (Glutose) 15 gm Q15M PRN PO DECREASED GLUCOSE; Start 07/09/17 at 05:00 Glucose (Glutose) 22.5 gm Q15M PRN PO DECREASED GLUCOSE; Start 07/09/17 at 05: 00 Dextrose (D50w Syringe) 25 ml Q15M PRN IV DECREASED GLUCOSE; Start 07/09/17 at 05:00 Dextrose (D50w Syringe) 50 ml Q15M PRN IV DECREASED GLUCOSE; Start 07/09/17 at 05:00 Glucagon (Glucagen) 1 mg Q15M PRN IM DECREASED GLUCOSE; Start 07/09/17 at 05:00 Glucose (Glutose) 15 gm Q15M PRN BUCCAL DECREASED GLUCOSE; Start 07/09/17 at 05 :00 Sodium Biphosphate/ Sodium Phosphate (Fleet Enema) [address] CONSTIPATION Last administered on 07/09/17 13:18; Admin Dose 133 ML; Start 10/15 at 11:00 Carbamide Peroxide (Debrox Otic) 3 drop BID BOTH EARS Last administered on 07/13 09:05; Admin Dose 3 DROP; Start 07/10/17 at 21:00 Lorazepam 1 mg 1 mg Q6H PRN IV AGITATION/ANXIETY; Start 07/12/17 at 10:30 Potassium Chloride/Dextrose/ Sod Cl (D5-NS + KCl 20 Meq) 1,000 ml @ 100 mls/hr Q10H IV Last administered on 07/13/17 12:19; Admin Dose 100 MLS/HR; Start at 20:00 Ketorolac Tromethamine (Toradol) 15 mg Q6H PRN IV PAIN; Start 07/12/17 at 20:00 ; Stop 07/15/17 at 19:59 Collagenase (Santyl) 1 applic DAILY TOP ; Start 07/14/17 at 09:00 Collagenase (Santyl) 1 applic PRN PRN TOP WOUND CARE; Start 07/13/17 at 14:00 TONY PATE Jul 13, 2017 14:53
[2017-07-13] MEDS: Insulin NOVOLOG SS MILD Algorithm (NPO/TPN/ENTERAL FEEDS) SC SCH ×2 (17:50→21:00)
[2017-07-13 20:04] VITALS: BP 144/67; RESP 18
[2017-07-13] MEDS: PAROXETINE 20 MG TAB PO SCH (21:14)
[2017-07-14] MEDS: Insulin NOVOLOG SS MILD Algorithm (NPO/TPN/ENTERAL FEEDS) SC SCH ×4 (01:00→13:00)
[2017-07-14 01:38] VITALS: BP 126/76; RESP 18
[2017-07-14] MEDS: ACCU-CHEK XX SCH ×6 (01:42→21:34)
[2017-07-14] MEDS: LEVOFLOXACIN 750 MG TABLET PO SCH (05:56)
--- NOTE | 2017-07-14 06:47 | CONS ---
Date/Time of Note Date/Time of Note DATE: 07/14/17 TIME: 06:42 Assessment/Plan Assessment/Plan Additional Assessment/Plan Long discussion with patient's . We explored goals of care is understanding of her underlying medical condition, her prior medical hospitalizations and her debilitated condition. We also spoke about pain and symptom management and quality of care, feels that she has good quality of care and he is encouraged that she will continue to improve. I do not believe that patient's will change his mind about level of care and he is not ready to consider a lower level of care. I believe he may be correct however patient will probably have multiple rehospitalizations prior to having a serious decision about POLST form and goals of care once again. Consultation Date/Type/Reason Admit Date/Time Type of Consultation: Palliative Hx of Present Illness Patient is a 67-year-old female status post MCA stroke who was brought to the emergency room with a febrile episode by her . Patient is essentially bedbound kip can do some activities with assistance. She can ambulate with assistance using a walker however daily activities of daily living otherwise she is unable to do safely. Her is a 24 hour 7 day a week caregiver. Patient was diagnosed with sepsis syndrome on presentation is receiving broad- spectrum IV antibiotic coverage for urinary tract infection. Psychological: nl mood/affect, no complaints Past Medical History Medical History: angina, GERD Past Surgical History Past Surgical Hx: no surgical history Social History Alcohol Use: none Smoking Status: Never smoker Drug Use: none Exam/Review of Systems Vital Signs Vitals Vital Signs Date Time Temp Pulse Resp B/P Pulse Ox O2 Delivery O2 Flow Rate FiO2 07/14/17 01:38 98.6 75 18 126/76 95 07/12/17 20:00 Nasal Cannula 2.0 Intake and Output 07/13/17 07/13/17 07/14/17 15:00 23:00 07:00 Intake Total 400 ml 1100 ml 700 ml Balance 400 ml 1100 ml 700 ml Exam Constitutional: No alert, No distress, No frail, No non-verbal, No obese, No oriented, No other, No well developed Head: No atraumatic, No hematomas, No lacerations, No normocephalic, No other Eyes: No EOMI, No PERRL, No fundi, disc, No icteric, No nl conjunctiva, No nl lids, No nl sclera, No other ENMT: No intubated, No mucosa pink and moist, No nl external ears & nose, No nl lips & teeth, No nl nasal mucosa & septum, No other, No tympanic membranes Respiratory: No clear to auscultation, No congested cough, No crackles/rales, No diminished breath sounds, No intercostal retraction, No labored breathing, No normal air movement, No other, No respirations, No tactile fremitus, No wheezing Cardiovascular: No S3, No S4, No bruits, No diastolic murmur, No edema, No gallop, No irregular rhythm, No jugular venous distention (JVD), No murmurs/ extra sounds, No nl pulses, No other, No regular rate and rhythm, No rub, No systolic murmur Extremities: No calf tenderness, No clubbing, No cyanosis, No edema, No normal pulses, No other, No palpable cord, No pitting pedal edema, No tenderness Results Result Diagram: 07/13/1744107/13/17441 Results 24 hrs Laboratory Tests Test 07/13/17 08:09 07/13/17 12:28 07/13/17 17:34 07/13/17 21:12 Bedside Glucose 122 120 148 143 Test 07/14/17 01:39 07/14/17 04:51 Bedside Glucose 99 98 Medications Medications Current Medications Ondansetron HCl (Zofran Inj) 4 mg Q6H PRN IV NAUSEA AND/OR VOMITING; Start 09/14 at 06:00 Acetaminophen (Tylenol Tab) 650 mg Q6H PRN PO PAIN LEVEL 1-3 OR FEVER Last administered on 07/10/17 08:47; Admin Dose 650 MG; Start 07/08/17 at 06:00 Famotidine (Pepcid) 20 mg Q12 PO Last administered on 07/13/17 21:14; Admin Dose 20 MG; Start 07/08/17 at 09:00 Paroxetine HCl (Paxil) 20 mg HS PO Last administered on 07/13/17 21:14; Admin Dose 20 MG; Start 07/08/17 at 21:00 Pramipexole (Mirapex) 0.5 mg TID PO Last administered on 07/13/17 21:14; Admin Dose 0.5 MG; Start 07/08/17 at 09:00 Rasagiline (Azilect) 1 mg DAILY PO Last administered on 07/13/17 09:05; Admin Dose 1 MG; Start 07/08/17 at 09:00 Polyethylene Glycol (Miralax) 17 gm DAILY PRN PO CONSTIPATION Last administered on 07/08/17 19:03; Admin Dose 17 GM; Start 07/08/17 at 17:00 Levofloxacin (Levaquin) 750 mg DAILY@06 PO Last administered on 07/14/17 05:56 ; Admin Dose 750 MG; Start 07/09/17 at 06:00; Stop 07/15/17 at 07:30 Diagnostic Test (Pha) (Accu-Chek) 1 ea 02 XX Last administered on 07/14/17 01: 42; Admin Dose 1 EA; Start 07/10/17 at 02:00 Miscellaneous Information 1 ea NOTE XX ; Start 07/09/17 at 05:00 Glucose (Glutose) 15 gm Q15M PRN PO DECREASED GLUCOSE; Start 07/09/17 at 05:00 Glucose (Glutose) 22.5 gm Q15M PRN PO DECREASED GLUCOSE; Start 07/09/17 at 05: 00 Dextrose (D50w Syringe) 25 ml Q15M PRN IV DECREASED GLUCOSE; Start 07/09/17 at 05:00 Dextrose (D50w Syringe) 50 ml Q15M PRN IV DECREASED GLUCOSE; Start 07/09/17 at 05:00 Glucagon (Glucagen) 1 mg Q15M PRN IM DECREASED GLUCOSE; Start 07/09/17 at 05:00 Glucose (Glutose) 15 gm Q15M PRN BUCCAL DECREASED GLUCOSE; Start 07/09/17 at 05 :00 Sodium Biphosphate/ Sodium Phosphate (Fleet Enema) 133 ml DAILY PRN [place] CONSTIPATION Last administered on 07/09/17 13:18; Admin Dose 133 ML; Start 10/15 at 11:00 Carbamide Peroxide (Debrox Otic) 3 drop BID BOTH EARS Last administered on 07/13 21:14; Admin Dose 3 DROP; Start 07/10/17 at 21:00 Lorazepam 1 mg 1 mg Q6H PRN IV AGITATION/ANXIETY; Start 07/12/17 at 10:30 Potassium Chloride/Dextrose/ Sod Cl (D5-NS + KCl 20 Meq) 1,000 ml @ 100 mls/hr Q10H IV Last administered on 07/13/17 22:20; Admin Dose 100 MLS/HR; Start at 20:00 Ketorolac Tromethamine (Toradol) 15 mg Q6H PRN IV PAIN; Start 07/12/17 at 20:00 ; Stop 07/15/17 at 19:59 Collagenase (Santyl) 1 applic DAILY TOP ; Start 07/14/17 at 09:00 Collagenase (Santyl) 1 applic PRN PRN TOP WOUND CARE; Start 07/13/17 at 14:00 Diagnostic Test (Pha) (Accu-Chek) 1 ea Q4 XX Last administered on 07/14/17 04: 54; Admin Dose 1 EA; Start 07/13/17 at 17:00 Insulin Aspart (Novolog Insulin Pen) (Adult SC Insulin - Mild Algorithm)... Q4 SC Last administered on 07/13/17 17:50; Admin Dose 1 UNIT; Start 07/13/17 at 17:00 MAVIS AYOUB Jul 14, 2017 06:47
[2017-07-14 07:13] VITALS: BP 137/79; RESP 20
[2017-07-14] MEDS: CARBAMIDE PEROXIDE 6.5% 15ML OTIC BOTH EARS SCH ×2 (09:18→21:33)
[2017-07-14] MEDS: PRAMIPEXOLE 0.25 MG TAB PO SCH ×3 (09:19→21:33)
[2017-07-14] MEDS: RASAGILINE MESYLATE 1 MG TAB PO SCH (09:19)
[2017-07-14] MEDS: CARBIDOPA/LEVODOPA (10/100) TAB PO SCH ×5 (09:19→21:33)
[2017-07-14] MEDS: FAMOTIDINE 20 MG TAB PO SCH ×2 (09:19→21:33)
[2017-07-14] MEDS: D5-NS + KCL 20 MEQ 1,000 ML IV SCH ×2 (09:19→17:48)
[2017-07-14] MEDS: COLLAGENASE 30 GM TUBE TOP SCH (09:20)
[2017-07-14 10:10] LABS: BASOPHILS % 0.3 % (0.0-2.0); EOSINOPHILS # 0.1 10^3/ul (0.0-0.5); HEMATOCRIT 39.1 % (37.0-47.0); HEMOGLOBIN 13.1 g/dl (12.0-16.0); LYMPHOCYTES # 1.2 10^3/ul (0.8-2.9); LYMPHOCYTES % 17.3 % (15.0-51.0); MEAN CORPUSCULAR HEMOGLOBIN 31.6 pg (29.0-33.0); MEAN CORPUSCULAR HGB CONC 33.5 g/dl (32.0-37.0); MEAN CORPUSCULAR VOLUME 94.4 fl (82.0-101.0); MEAN PLATELET VOLUME 8.8 fl (7.4-10.4); MONOCYTE # 0.4 10^3/ul (0.3-0.9); MONOCYTES % 5.7 % (0.0-11.0); NEUTROPHILS % 75.4 % (39.0-77.0); PLATELET COUNT 167 10^3/UL (140-415); RED BLOOD COUNT 4.14 10^6/ul (4.20-5.40); RED CELL DISTRIBUTION WIDTH 13.2 % (11.5-14.5); WHITE BLOOD COUNT 6.8 10^3/ul (4.8-10.8)
[2017-07-14 10:23] LABS: ANION GAP 11 (8-16); BLOOD UREA NITROGEN < 2 mg/dl (7-20); CALCIUM 8.2 mg/dl (8.4-10.2); CARBON DIOXIDE 28 mmol/L (21-31); CHLORIDE 103 mmol/L (97-110); CREATININE 0.36 mg/dl (0.44-1.00); GLUCOSE 115 mg/dl (70-220); POTASSIUM 3.4 mmol/L (3.5-5.1); SODIUM 139 mmol/L (135-144)
--- NOTE | 2017-07-14 12:12 | PN ---
Date/Time of Note Date/Time of Note DATE: 07/14/17 TIME: 12:08 Assessment/Plan VTE Prophylaxis VTE Prophylaxis Intervention: SCD's Lines/Catheters IV Catheter Type (from Nrs): Peripheral IV Urinary Cath still in place: No Assessment/Plan Chief Complaint/Hosp Course Assessment/Plan: 67 yo F with Parkinson presents with constipation, abd pain, fever. Likely 2/2 pyelo +/- ADR to her new PD regimen. 1. Sepsis secondary to UTI: Slowly improving. Urine culture positive for Klebsiella pneumonia, Proteus, E. coli bugs. -Continue Levaquin. -Monitor CBC daily 2. Abdominal distention: Secondary to ileus as this was found on CT scan with IV contrast. Now improved, patient had large bowel movement this morning and passing gas. -We will cautiously start clear liquid diet and advance as tolerated -Follow-up surgery recommendations, for now continue n.p.o. status. 3. Parkinson's disease: Stable present -Continue Sinemet, Mirapex, Azilect meds 4. Type 2 diabetes: A1c equals 6.1. - Continue sliding scale insulin 5. GI prophylaxis: H2 marcela Problems: Subjective 24 Hr Interval Summary Free Text/Dictation Patient had large bowel movement. Less abdominal pain. No acute events overnight. Exam/Review of Systems Vital Signs Vitals Vital Signs Date Time Temp Pulse Resp B/P Pulse Ox O2 Delivery O2 Flow Rate FiO2 07/14/17 07:13 97.9 80 20 137/79 97 07/12/17 20:00 Nasal Cannula 2.0 Intake and Output 07/13/17 07/13/17 07/14/17 15:00 23:00 07:00 Intake Total 400 ml 1100 ml 700 ml Balance 400 ml 1100 ml 700 ml Exam Lying in bed, more alert, at bedside full AROM R shoulder no mrg lungs clear abd less distended, less firm no lower extremity edema bilateral Results Result Diagram: 07/14/17 0940 07/14/17 0940 Results 24 hrs Laboratory Tests Test 07/13/17 12:28 07/13/17 17:34 07/13/17 21:12 07/14/17 01:39 Bedside Glucose 120 148 143 99 Test 07/14/17 04:51 07/14/17 08:22 07/14/17 09:40 Bedside Glucose 98 106 White Blood Count 6.8 Red Blood Count 4.14 L Hemoglobin 13.1 Hematocrit 39.1 Mean Corpuscular Volume 94.4 Mean Corpuscular Hemoglobin 31.6 Mean Corpuscular Hemoglobin Concent 33.5 Red Cell Distribution Width 13.2 Platelet Count 167 Mean Platelet Volume 8.8 Neutrophils % 75.4 Lymphocytes % 17.3 Monocytes % 5.7 Eosinophils % 1.0 Basophils % 0.3 Nucleated Red Blood Cells % 0.0 Neutrophils # (Manual) 5.2 Lymphocytes # 1.2 Monocytes # 0.4 Eosinophils # 0.1 Basophils # 0.0 Nucleated Red Blood Cells # 0.0 Sodium Level 139 Potassium Level 3.4 L Chloride Level 103 Carbon Dioxide Level 28 Anion Gap 11 Blood Urea Nitrogen < 2 L Creatinine 0.36 L Glucose Level 115 Calcium Level 8.2 L Medications Medications Current Medications Ondansetron HCl (Zofran Inj) 4 mg Q6H PRN IV NAUSEA AND/OR VOMITING; Start 09/14 at 06:00 Acetaminophen (Tylenol Tab) 650 mg Q6H PRN PO PAIN LEVEL 1-3 OR FEVER Last administered on 07/10/17 08:47; Admin Dose 650 MG; Start 07/08/17 at 06:00 Famotidine (Pepcid) 20 mg Q12 PO Last administered on 07/14/17 09:19; Admin Dose 20 MG; Start 07/08/17 at 09:00 Paroxetine HCl (Paxil) 20 mg HS PO Last administered on 07/13/17 21:14; Admin Dose 20 MG; Start 07/08/17 at 21:00 Pramipexole (Mirapex) 0.5 mg TID PO Last administered on 07/14/17 09:19; Admin Dose 0.5 MG; Start 07/08/17 at 09:00 Rasagiline (Azilect) 1 mg DAILY PO Last administered on 07/14/17 09:19; Admin Dose 1 MG; Start 07/08/17 at 09:00 Polyethylene Glycol (Miralax) 17 gm DAILY PRN PO CONSTIPATION Last administered on 07/08/17 19:03; Admin Dose 17 GM; Start 07/08/17 at 17:00 Levofloxacin (Levaquin) 750 mg DAILY@06 PO Last administered on 07/14/17 05:56 ; Admin Dose 750 MG; Start 07/09/17 at 06:00; Stop 07/15/17 at 07:30 Miscellaneous Information 1 ea NOTE XX ; Start 07/09/17 at 05:00 Glucose (Glutose) 15 gm Q15M PRN PO DECREASED GLUCOSE; Start 07/09/17 at 05:00 Glucose (Glutose) 22.5 gm Q15M PRN PO DECREASED GLUCOSE; Start 07/09/17 at 05: 00 Dextrose (D50w Syringe) 25 ml Q15M PRN IV DECREASED GLUCOSE; Start 07/09/17 at 05:00 Dextrose (D50w Syringe) 50 ml Q15M PRN IV DECREASED GLUCOSE; Start 07/09/17 at 05:00 Glucagon (Glucagen) 1 mg Q15M PRN IM DECREASED GLUCOSE; Start 07/09/17 at 05:00 Glucose (Glutose) 15 gm Q15M PRN BUCCAL DECREASED GLUCOSE; Start 07/09/17 at 05 :00 Sodium Biphosphate/ Sodium Phosphate (Fleet Enema) 133 ml DAILY PRN MD CONSTIPATION Last administered on 07/09/17 13:18; Admin Dose 133 ML; Start 10/15 at 11:00 Carbamide Peroxide (Debrox Otic) 3 drop BID BOTH EARS Last administered on 07/14 09:18; Admin Dose 3 DROP; Start 07/10/17 at 21:00 Lorazepam 1 mg 1 mg Q6H PRN IV AGITATION/ANXIETY; Start 07/12/17 at 10:30 Potassium Chloride/Dextrose/ Sod Cl (D5-NS + KCl 20 Meq) 1,000 ml @ 100 mls/hr Q10H IV Last administered on 07/14/17 09:19; Admin Dose 100 MLS/HR; Start at 20:00 Ketorolac Tromethamine (Toradol) 15 mg Q6H PRN IV PAIN; Start 07/12/17 at 20:00 ; Stop 07/15/17 at 19:59 Collagenase (Santyl) 1 applic DAILY TOP Last administered on 07/14/17 09:20; Admin Dose 1 APPLIC; Start 07/14/17 at 09:00 Collagenase (Santyl) 1 applic PRN PRN TOP WOUND CARE; Start 07/13/17 at 14:00 Diagnostic Test (Pha) (Accu-Chek) 1 ea Q4 XX Last administered on 07/14/17 04: 54; Admin Dose 1 EA; Start 07/13/17 at 17:00 Insulin Aspart (Novolog Insulin Pen) (Adult SC Insulin - Mild Algorithm)... Q4 SC Last administered on 07/13/17 17:50; Admin Dose 1 UNIT; Start 07/13/17 at 17:00 TONY PATE Jul 14, 2017 12:12
[2017-07-14] MEDS ORDERED: ACCUCHECK 2 AM XX SCH (13:30)
[2017-07-14 13:33] VITALS: BP 118/60; RESP 19
[2017-07-14] MEDS: Insulin NOVOLOG SS MILD Algorithm (SS with meals and bedtime) SC SCH ×2 (17:25→21:00)
[2017-07-14 20:42] VITALS: BP 109/58; RESP 20
[2017-07-14] MEDS: PAROXETINE 20 MG TAB PO SCH (21:33)
[2017-07-15 02:19] VITALS: BP 134/78; RESP 20
[2017-07-15] MEDS: D5-NS + KCL 20 MEQ 1,000 ML IV SCH (02:51)
[2017-07-15] MEDS: LEVOFLOXACIN 750 MG TABLET PO SCH ×2 (06:00→07:12)
[2017-07-15] MEDS: ACCU-CHEK XX SCH ×2 (07:20→12:50)
[2017-07-15] MEDS: Insulin NOVOLOG SS MILD Algorithm (SS with meals and bedtime) SC SCH ×2 (07:20→11:10)
[2017-07-15 08:26] VITALS: BP 125/64; RESP 18
[2017-07-15] MEDS: COLLAGENASE 30 GM TUBE TOP SCH (09:00)
[2017-07-15] MEDS: RASAGILINE MESYLATE 1 MG TAB PO SCH (09:13)
[2017-07-15] MEDS: FAMOTIDINE 20 MG TAB PO SCH (09:13)
[2017-07-15] MEDS: PRAMIPEXOLE 0.25 MG TAB PO SCH ×2 (09:17→12:51)
[2017-07-15] MEDS: CARBAMIDE PEROXIDE 6.5% 15ML OTIC BOTH EARS SCH (10:19)
[2017-07-15] MEDS: CARBIDOPA/LEVODOPA (10/100) TAB PO SCH ×3 (10:19→16:03)
--- NOTE | 2017-07-15 13:09 | PDOCDIS ---
Discharge Instructions CONDITION Patient Condition: Stable HOME CARE INSTRUCTIONS: Diet Instructions: Regular ACTIVITY: Activity Restrictions: Slowly Increase Activity FOLLOW UP/APPOINTMENTS Follow-up Plan Please take your medications as prescribed. Please follow-up with your regular doctor in the clinic in the next 1 week. TONY PATE Jul 15, 2017 13:09
[2017-07-15] MEDS ORDERED: FAMO20TA18 PO (13:11)
[2017-07-15] MEDS ORDERED: POLY17PO6 PO (13:11)
[2017-07-15] MEDS ORDERED: SAN30GM TOP (13:11)
--- NOTE | 2017-07-15 13:26 | DS ---
Date/Time of Note Date/Time of Note DATE: 07/15/17 TIME: 13:21 Discharge Summary Admission/Discharge Info Admit Date/Time Jul 08, 2017 at 05:12 Discharge Date/Time Discharge Diagnosis 1. Sepsis secondary to UTI: Slowly improving. Urine culture positive for Klebsiella pneumonia, Proteus, E. coli bugs-completed 7 days treatment with antibiotics 2. Abdominal distention: Secondary to ileus-resolved now 3. Parkinson's disease-on Sinemet, Mirapex, Azilect meds 4. Type 2 diabetes Patient Condition: Stable Hospital Course 67-year-old female is brought in from home for high fever and altered mental status. She was at home with her who called paramedics for fever is going up on for 2 days. Patient's been out of several hospitals and is bedridden in a hospital bed at home. denies patient has had cough recently. She is unable to provide a history for herself. Upon my examination the patient was awake in bed. She had periods of tachypnea. Denies any chest pain or shortness of breath. As per the she has been dealing with Parkinson's for the last few years. 2 weeks ago she did have her Parkinson's medications adjusted since that time the has noticed that her her fingers have become somewhat contracted. She also was having issues with drooling and she will she saw a neurologist and had an injection to her face. This since that time she has been unable to properly enunciate her words. She was seen by a new neurologist 1-2 days ago who thought some of her symptoms may be related to too high of a dose of her Parkinson's medications. Her medication doses were decreased. Also states that she has not been able to have proper bowel movements over the last 1-2 weeks. So patient was admitted to [facility] floor, seen by palliative care team and general surgery team. She was found on imaging studies of the abdomen with an ileus. She was made n.p.o. and conservatively treated for this. She also had UTI and was placed on antibiotics for this. Over the course of her hospital stay her ileus symptoms improved, eventually she was able to pass gas and have a bowel movement, and diet was started liquid diet advance as tolerated and patient tolerated this well. She completed 7 days treatment for the UTI. She was evaluated by acute rehab but they recommended patient be transferred to [facility] facility, however family refused, but they will be going home with home health nursing, special bed for her sacral ulcers, which were treated by wound team, as well as home health PT. See below for full list of discharge medications. Home Meds Active Scripts Famotidine* (Famotidine*) 20 Mg Tablet, 20 MG PO DAILY, #30 TAB 1 Refill Prov:TONY PATE S. 07/15/17 Polyethylene Glycol* (Miralax*) 17 Gm Powd.pack, 17 GM PO DAILY Y for CONSTIPATION, #1 1 Refill Prov:TONY PATE S. 07/15/17 Collagenase* (Santyl*) 30 Gm Oint..gm., 1 APPLIC TOP DAILY for 30 Days, #1 Prov:TONY PATE S. 07/15/17 Reported Medications Bisacodyl* (Bisacodyl*) 5 Mg Tablet.dr, 5 MG PO DAILY, TAB 06/01/17 Carbidopa/Levodopa (Rytary ER 61.25 mg-245 mg Cap) 1 Each Capsule.er, 1 EACH PO , CAP 06/01/17 Rasagiline Mesylate* (Azilect*) 1 Mg Tablet, 1 MG PO DAILY, TAB 06/01/17 Entacapone* (Comtan*) 200 Mg Tab, 200 MG PO 5 TIMES DAILY, TAB TAKE I TABLET 5 TIMES DAILY: 7AM;10AM;1PM;4PM;7PM 06/01/17 Glimepiride* (Glimepiride*) 1 Mg Tablet, 1 MG PO WITH BREAKFAST, TAB 06/01/17 Omeprazole* (Omeprazole*) 20 Mg Capsule.dr, 20 MG PO BID, #60 CAP 06/01/17 Paroxetine Hcl* (Paxil*) 20 Mg Tablet, 20 MG PO HS, TAB 06/15/15 Pramipexole* (Pramipexole*) 0.5 Mg Tablet, 0.5 MG PO TID, TAB 06/15/15 Carbidopa-Levodopa* (Sinemet*) 10-100 Mg Tablet, 1 TAB PO 5 TIMES DAILY, TAB TAKE 1 TABLET 5 TIMES DAILY: 7AM;10AM;1PM;4PM;7PM 06/15/15 Primary Care Provider Not On Staff Doctor Time spent on discharge: > 30 minutes Pending Labs Laboratory Tests Test 07/14/17 17:42 07/14/17 21:35 07/15/17 09:11 07/15/17 12:49 Bedside Glucose 131mg/dL (70-220) 126mg/dL (70-220) 125mg/dL (70-220) 122mg/dL (70-220) TONY PATE Jul 15, 2017 13:26
[2017-07-15 14:51] VITALS: BP 130/79; RESP 20
== END 2017-07-15 17:40 | disposition home health service (06) | DRG 871 ==
LOC: E/R 03:19 → MS3 05:12 → MS4 14:06 → MS1 07-11 09:28
PROVIDERS: ADMIT Family Medicine; ATTEND Family Medicine
DX: A41.9 Sepsis, unspecified organism (principal); G93.41 Metabolic encephalopathy; L89.153 Pressure ulcer of sacral region, stage 3; G20 Parkinson's disease; E11.622 Type 2 diabetes mellitus with other skin ulcer; K56.7 Ileus, unspecified; N39.0 Urinary tract infection, site not specified; R06.82 Tachypnea, not elsewhere classified; R14.0 Abdominal distension (gaseous); Z86.73 Personal history of transient ischemic attack (TIA), and cerebral infarction without residual deficits
CPT/HCPCS: 36415; 71010; 71100; 74000; 74176; 74177; 80048; 80053; 80061; 80202; 81001; 82565; 82962; 83036; 83605; 83735; 84100; 84132; 84443; 84484; 84520; 85025; 85610; 85730; 87040; 87086; 92610; 93005; 96374; 96375; 97110; 97163; 97530; J0692; J1815; J1956; J2270; J3370; J3480; J7030; J7040; J7050; Q9967